=== PATIENT | female | born 1945 | race Caucasian/White ===

== ENCOUNTER 2021-07-03 20:01 | Inpatient (IN) | payer MEDICARE ==
[~2021-07-03] VITALS: Ht 157.5 cm; Wt 47.3 kg
[2021-07-03] MEDS ORDERED: MORPHINE SULFATE 2 MG/ML INJ. IVP ONE ×2 (21:00→22:15)
--- NOTE | 2021-07-03 21:02 | PHYS DOC ---
Past Medical History Past Medical History: Cancer, Diabetes-Type II, Vascular Disease Additional Past Medical Histor: patient poor historian, breast cancer, on plavix, recurrent shingles Past Surgical History: Other Additional Past Surgical Histo: bilateral masectomy, multiple bypasses/stents in b/l LE Drug Use: None General Adult EDM: Chief Complaint: HIP PAIN HPI: HPI: Patient is a 76 year old female who presents via EMS with left hip pain status post mechanical fall at home. Patient states that she was on the couch watching television, and when she stood up she fell to the ground. She reports that her "foot was asleep," but she did not realize it until she stood up. Patient denie s any feelings of lightheadedness or vertigo prior to fall. Patient is a somewhat poor historian, and can only provide past medical history that includes breast cancer with bilateral mastectomy. Patient was given 100 fentanyl en route, which did improve her pain. Review of Systems: Review of Systems: Constitutional: Denies fever, chills or generalized weakness Eyes: Denies change in visual acuity, visual field deficits or discharge HENT: Denies ear pain, nasal congestion or sore throat Respiratory: Denies cough or shortness of breath Cardiovascular: Denies chest pain, palpitations or edema GI: Denies abdominal pain, nausea, vomiting, bloody stools or diarrhea : Denies dysuria or hematuria Musculoskeletal: See HPI Integument: Denies rash or other skin lesion Neurologic: Denies headache, focal weakness or sensory changes Heart Score: C/O Chest Pain: No Current Medications: Current Medications Medications (Trade) Dose Ordered Sig/Patti Route PRN Reason Start Time Stop Time Status Last Admin Dose Admin Morphine Sulfate (Morphine Sulfate) 2 mg 1X ONCE IVP 07/03/21 21:00 07/03/21 21:01 DC 07/03/21 20:43 Morphine Sulfate (Morphine Sulfate) 2 mg 1X ONCE IVP 07/03/21 22:15 07/03/21 22:16 DC 07/03/21 22:24 Hydromorphone HCl (Dilaudid) 1 mg 1X ONCE IVP 07/03/21 22:30 07/03/21 22:31 DC 07/03/21 22:49 Allergies: Allergies: Allergies Coded Allergies Type Severity Reaction Last Updated Verified No Known Drug Allergies 4/2/22 No Physical Exam: PE: Constitutional: Well developed, well nourished, non-toxic appearance, patient grimaces in pain with slight movement or jarring of exam bed. HENT: Normocephalic, atraumatic, bilateral external ears normal, nose normal. Eyes: PERRL, EOMI, conjunctiva normal, no discharge. Neck: Normal range of motion, no tenderness, no stridor. Skin: Small abrasion noted to base of left great toenail with dried blood, skin behind the left knee bruised. Skin otherwise warm, dry, no erythema, no rash. Back: No obvious deformity, no tenderness. Extremities: Left lower extremity exquisitely tender to movement, range of motion not intact secondary to pain, distal left lower extremity externally rotated, left lower extremity shorter than right, DP/PT pulses present on initial examthough weaker compared to right, 1+ pitting edema to left lower extremity. Extremities otherwise no tenderness, no cyanosis, no clubbing, ROM intact, no edema. Neurologic: Alert and oriented x4, sensory function grossly intact, no focal deficits noted. Current Patient Data: Vital Signs: Vital Signs Date Time Temp Pulse Resp B/P (MAP) Pulse Ox O2 Delivery O2 Flow Rate FiO2 07/04/21 00:50 88 16 167/68 (101) 97 Room Air 2.0 07/04/21 00:45 99 16 158/59 (92) 97 Nasal Cannula 2.0 07/04/21 00:40 101 16 189/84 (119) 98 Nasal Cannula 2.0 07/04/21 00:35 100 16 187/84 (118) 98 Nasal Cannula 2.0 07/03/21 22:49 16 97 07/03/21 22:24 16 98 Room Air 07/03/21 20:43 18 97 07/03/21 20:22 97.4 87 16 170/86 (114) 95 Room Air 97.4 Radiology/Procedures: Radiology/Procedures: EXAMINATION: Chest, pelvis and left femur radiographs. VIEWS: Single view of the chest, single view of the pelvis and 3 views of the left femur. COMPARISON: None INDICATION:76 years, Female, falling down. FINDINGS: Chest: Normal cardiomediastinal silhouette. No focal consolidation. No pleural effusion or pneumothorax. No acute osseous process. Right Mediport catheter tip locates in the mid SVC. Pelvis and proximal femur: Acute comminuted displaced and impacted distal left femoral diaphyseal fracture with extension to the articular surface. Large soft tissue swelling about the fracture. No dislocation or subluxation. Tr icompartment osteoarthritis of the knee. [id number] bilateral hip osteoarthritis. IMPRESSION: 1. No acute cardiopulmonary findings. 2. Acute comminuted impacted distal left femoral diaphyseal fracture. Electronically signed by: David Valle MD (07/03/2021 9:51 PM) [facility] PROCEDURE: XR LT TIBIA + FIBULA, XR KNEE_LT 1-2 VIEWS DATE: 07/03/2021 10:37 PM INDICATION: additional views COMPARISON: Radiograph done earlier today. FINDINGS/ IMPRESSION: Additional views of the patient's comminuted and displaced right distal femoral diaphysis fracture. Severe degenerative changes of the lateral compartment of the knee. Moderate medial and patellofemoral compartment degenerative changes. No acute tibia/fibular fracture. Electronically signed by: Bubba Mcintosh MD (07/03/2021 11:02 PM) [facility] Course & Med Decision Making: Course & Med Decision Making Pertinent Labs and Imaging studies reviewed. (See chart for details) Patient is a 76-year-old female who sustained a mechanical fall at home and presents with left hip pain. Patient does have left lower extremity external rotation deformity as well as shortening. Plain films obtained of the left hip, pelvis and femur. Plain films reveal a comminuted fracture at the distal femur of the left leg. Additional views obtained of the left knee and left tibia-fibula. After additional images were obtained, palpable pulses were weaker. Doppler was used to evaluate DP/PT pulses. While thready, triphasic pulses were heard using Doppler by myself and Dr. Kennedy, attending in the department.. Dr. Ash, orthopedic surgery service, was paged and made aware of patient case. She recommends applying traction, reducing the leg, and then obtaining CT images. Plain film of the chest was also obtained for preoperative purposes. Ketamine was used for conscious sedation procedure, administered and supervised by Dr. Kennedy. Patient's power of assistant city attorney, Мария Landis, provided verbal consent for the sedation procedure as well as reduction procedure, as the patient was medicated with narcotics and unable to provide verbal or signature consent. The consent by Мария Landis was witnessed by myself as well as nursing concrete pipe plant supervisor, Timothy. After ketamine administration and ensuring the patient was dissociated, manual traction was applied to the left lower extremity. This was followed by knee immobilizer placement. Gongora's traction device was then applied over the immobilizer. Neurovascular intact post reduction. Patient was taken to CT after reawakening from ketamine sedation. In order to obtain CT images, Gongora's traction was removed for short period of time and then reapplied. The knee immobilizer remained in place throughout. Patient was admitted to hospitalist service under Dr. Brown. Keith Disclaimer: Keith Disclaimer: This electronic medical record was generated, in whole or in part, using a voice recognition dictation system. Procedural Sedation Proc Sed Indication: Comminuted, impacted distal left femur fracture Consent: I have discussed with the patient and the patient field representative/health education the indication, alternatives, and the possible risks and /or complications of the planned procedure and the anesthesia methods. The patient is unable at this time to agree and proceed, but patient field representative/health education verbalizes understanding and agreement to proceed. Pre-Sedation Documentation and Exam: Airway Assessment: normal. Prior History of Anesthesia Complications: Patient had acute agitation after generalized anesthesia during bypass in lower extremities previously. Sedation/ Anesthesia Plan: Medications Used: see nursing notes; 0.5 mg/kg ketamine push over 1 minute. Monitoring and Safety: The patient was placed on a playground monitor and vital signs, pulse oximetry and level of consciousness were continuously evaluated throughout the procedure. The patient was closely monitored until recovery from the medications was complete and the patient had returned to baseline status. Respiratory therapy was on standby at all times during the procedure. (The following sections must be completed) Post-Sedation Vital Signs: See vital signs Post-Sedation Exam: Neurovascularly intact. Complications: none. Vital Signs Vital Signs Date Time Temp Pulse Resp B/P (MAP) Pulse Ox O2 Delivery O2 Flow Rate FiO2 07/04/21 00:50 88 16 167/68 (101) 97 Room Air 2.0 07/03/21 20:22 97.4 97.4 Departure Departure Impression: Primary Impression: Closed fracture of distal end of left femur Qualified Codes: S72.492A - Other fracture of lower end of left femur, initial encounter for closed fracture Disposition: ADMITTED INPATIENT Admitting Physician: REBEKAH (Kevin) Condition: GUARDED Referrals: MARIS PRICE MD (PCP) WALTER MARSHALL Jul 03, 2021 21:02
--- NOTE | 2021-07-03 21:53 | RAD ---
EXAMINATION: Chest, pelvis and left femur radiographs. VIEWS: Single view of the chest, single view of the pelvis and 3 views of the left femur. COMPARISON: None INDICATION:76 years, Female, falling down. FINDINGS: Chest: Normal cardiomediastinal silhouette. No focal consolidation. No pleural effusion or pneumothor ax. No acute osseous process. Right Mediport catheter tip locates in the mid SVC. Pelvis and proximal femur: Acute comminuted displaced and impacted distal left femoral diaphyseal fra cture with extension to the articular surface. Large soft tissue swelling about the fracture. No disl ocation or subluxation. Tricompartment osteoarthritis of the knee. [id number] bilateral hip ost eoarthritis. IMPRESSION: 1. No acute cardiopulmonary findings. 2. Acute comminuted impacted distal left femoral diaphyseal fracture. Electronically signed by: David Valle MD (07/03/2021 9:51 PM) [facility]
[2021-07-03] MEDS ORDERED: HYDROmorphone 2 MG/ML INJ. IVP ONE ×2 (22:30→23:30)
--- NOTE | 2021-07-03 23:05 | RAD ---
XR LT TIBIA + FIBULA, XR KNEE_LT 1-2 VIEWS DATE: 07/03/2021 10:37 PM INDICATION: additional views COMPARISON: Radiograph done earlier today. FINDINGS/ IMPRESSION: Additional views of the patient's comminuted and displaced right distal femoral diaphysis fracture. Severe degenerative changes of the lateral compartment of the knee. Moderate medial and patellofemora l compartment degenerative changes. No acute tibia/fibular fracture. Electronically signed by: Bubba Mcintosh MD (07/03/2021 11:02 PM) [facility]
[2021-07-03] MEDS ORDERED: KETAMINE HCL IN NACL, ISO-OSM 50 MG/5 ML SYRINGE IV ONE (23:15)
[2021-07-04] VITALS (13 sets, daily range): BP systolic 113–135; BP diastolic 52–64
--- NOTE | 2021-07-04 06:56 | RAD ---
EXAMINATION: CT LOWER LEFT EXTREMITY WITHOUT CONTRAST, 07/04/2021 1:00 AM CLINICAL INDICATION: Post reduction, preop COMPARISON: Left knee radiograph 07/03/2021 TECHNIQUE: Helical CT imaging performed of the left lower extremity from above the hips through the m idfoot without the use of intravenous contrast. Sagittal and coronal reformats were obtained. One or more of the following individualized dose reduction techniques were utilized for this examinat ion: 1. Automated exposure control 2. Adjustment of the mA and/or kV according to patient size 3. Use of iterative reconstruction technique. FINDINGS: The bones are diffusely demineralized. There is a displaced fracture of the distal femoral metadiaphysis. The distal fragment is displaced medially by about 1.5 cm and slightly angulated media lly. No enterocele or extension. There is no other fracture in the left lower extremity. There is a l arge lipohemarthrosis. There is severe lateral compartment narrowing with subchondral sclerosis and small subchondral cysts. Moderate medial compartment narrowing. There are tricompartmental osteophytes. There is no significa nt arthritis in the hip or ankle. There are surgical clips in the right groin. IMPRESSION: Mildly displaced distal femoral metadiaphyseal fracture. Electronically signed by: Joanna Thomas MD (07/04/2021 6:53 AM) JUN
[2021-07-04] MEDS ORDERED: ONDANSETRON PF 4 MG/2 ML VIAL. IVP PRN ×2 (07:15→09:15)
[2021-07-04] MEDS ORDERED: ACETAMINOPHEN 325 MG TABLET. PO PRN (07:15)
--- NOTE | 2021-07-04 08:07 | PDOC ---
PROGRESS NOTES Date of Service DATE: 07/04/21 TIME: 08:01 Subjective Subjective Problems overnight: Objective Vital Signs Vital Signs Date Time Temp Pulse Resp B/P (MAP) Pulse Ox O2 Delivery O2 Flow Rate FiO2 07/04/21 07:00 98.9 81 18 123/53 (76) 92 Room Air 98.9 07/04/21 00:50 2.0 Assessment Assessment POD# Plan Plan of Care Patient has not been physically seen by orthopedics but Dr. Ash was talking to the ER PA last night about patient. We are planning to take the patient to the OR today, time TBD. Full consult to follow. Justicifation of Admission Dx: Justifications for Admission: Justification of Admission Dx: Yes SYLVIA VICENTE Jul 04, 2021 08:06
[2021-07-04] MEDS: fentaNYL PF VIAL 100 MCG/2 ML VIAL IVP PRN (08:10)
[2021-07-04 08:30] LABS: BASO % 0 % (0-3); EOS % 0 % (0-3); HEMATOCRIT 30.1 % (36.0-47.0); HEMOGLOBIN 10.2 g/dL (12.0-15.5); LYMPH # 1.1 x10^3/uL (1.0-4.8); LYMPH % 16 % (24-48); MEAN CORPUSCULAR HEMOGLOBIN 31 pg (25-35); MEAN CORPUSCULAR HGB CONC 34 g/dL (31-37); MEAN CORPUSCULAR VOLUME 91 fL (79-100); MONO # 0.8 x10^3/uL (0.0-1.1); MONO % 12 % (0-9); NEUT # 4.9 x10^3/uL (1.8-7.7); NEUT % 72 % (31-73); PLATELET COUNT 296 x10^3/uL (140-400); RED BLOOD COUNT 3.29 x10^6/uL (3.50-5.40); RED CELL DISTRIBUTION WIDTH 13.9 % (11.5-14.5); WHITE BLOOD COUNT 6.9 x10^3/uL (4.0-11.0)
[2021-07-04 08:43] LABS: PROTHROMBIN TIME PATIENT 12.8 SEC (11.7-14.0)
[2021-07-04 08:52] LABS: ALBUMIN 3.1 g/dL (3.4-5.0); ALBUMIN/GLOBULIN RATIO 0.9 (1.0-1.7); CALCIUM 8.3 mg/dL (8.5-10.1); CREATININE 1.1 mg/dL (0.6-1.0); POTASSIUM 4.4 mmol/L (3.5-5.1); TOTAL BILIRUBIN 0.7 mg/dL (0.2-1.0); TOTAL PROTEIN 6.4 g/dL (6.4-8.2)
[2021-07-04] MEDS ORDERED: ELECTROLYTE (NON-ICU) PROTOCOL. MC PRN (09:15)
[2021-07-04] MEDS ORDERED: DEXTROSE 50% 25 GM / 50ML DISP.SYRIN. IV PRN (09:15)
[2021-07-04] MEDS ORDERED: IV DEXTROSE 5% 250 ML BAG. IV PRN (09:15)
[2021-07-04] MEDS ORDERED: CALCIUM CARBONATE 500 MG TAB.CHEW PO PRN (09:15)
[2021-07-04] MEDS ORDERED: MORPHINE SULFATE 2 MG/ML INJ. IV PRN (09:15)
[2021-07-04] MEDS ORDERED: PROCHLORPERAZINE 10 MG/2 ML VIAL. IVP PRN (09:30)
[2021-07-04] MEDS ORDERED: IV RINGERS,LACTATED 1000ML 1,000 ML IV SCH (09:30)
[2021-07-04] MEDS ORDERED: fentaNYL PF VIAL 100 MCG/2 ML VIAL IVP PRN ×2 (09:30)
[2021-07-04] MEDS ORDERED: [UNRECOGNIZED DRUG - CODE] PO (10:55)
[2021-07-04] MEDS ORDERED: OXYB5TAB10 PO (11:04)
[2021-07-04] MEDS ORDERED: ATOR20TA58 PO (11:04)
[2021-07-04] MEDS ORDERED: CLOP75TA PO (11:04)
[2021-07-04] MEDS ORDERED: METF10007 PO (11:04)
[2021-07-04] MEDS ORDERED: GABA600T7 PO (11:04)
[2021-07-04] MEDS: INSULIN LISPRO 300 UNITS/3 ML VIAL. SQ SCH ×2 (11:51→17:00)
[2021-07-04] MEDS ORDERED: ONDANSETRON PF 4 MG/2 ML VIAL. ONE ×2 (15:17→17:23)
[2021-07-04] MEDS ORDERED: DEXAMETHASONE SOD PHOS 4 MG/ML VIAL ONE (15:17)
[2021-07-04] MEDS ORDERED: PROPOFOL 10 MG/ML (20ML) VIAL. IV ONE (15:17)
[2021-07-04] MEDS ORDERED: fentaNYL PF VIAL 100 MCG/2 ML VIAL ONE (15:17)
--- NOTE | 2021-07-04 15:41 | PDOC2 ---
CONSULT Date of Consult Date of Consult DATE: 07/04/21 TIME: 15:29 Reason for Consult Reason for Consult: L femur fracture History of Present Illness Reason for Visit: History is taken from patient's brother and sister in law. Brother says that he calls her every evening around 6 pm to check on her but EMS called him earlier than that. The patient told them that her leg had been asleep and she didn't realize it and she collapsed when she stood up to get the phone that wasn't with her. After she fell, she remembered that she had some sort of emergency device that called EMS. EMS called the emergency contact who told them to take her to [place] where she was found to have a distal femur fracture. She was transferred to [place] for orthopedic care. Past Medical History Past Medical History Family reports DM, HTN, high cholesterol, endometrial CA, breast CA, peripheral vascular disease, memory issues-getting worse, multiple falls recently Past Surgical History Past Surgical History Vascular bypass BL LE x 2, hysterectomy, bilateral mastectomy, L knee surgery Family History Family History [place] Social History Social History Patient quit smoking about 6-7 years ago, vapes now. No alcohol use. Lives alone in community. Current Problem List Problem List Problems Medical Problems: (1) Closed fracture of distal end of left femur Status: Acute Current Medications Current Medications Home medications per family: amlodipine, benazepril, metformin, oxybutinin, Plavix, gabapentin prn, lipitor Current Medications Morphine Sulfate (Morphine Sulfate) 2 mg 1X ONCE IVP Last administered on 07/03/21at 20:43; Start 07/03/21 at 21:00; Stop 07/03/21 at 21:01; Status DC Morphine Sulfate (Morphine Sulfate) 2 mg 1X ONCE IVP Last administered on 07/03/21at 22:24; Start 07/03/21 at 22:15; Stop 07/03/21 at 22:16; Status DC Hydromorphone HCl (Dilaudid) 1 mg 1X ONCE IVP Last administered on 07/03/21at 22:49; Start 07/03/21 at 22:30; Stop 07/03/21 at 22:31; Status DC Ketamine HCl (Ketamine) 100 mg 1X ONCE IV Last administered on 07/04/21at 00:45; Start 07/03/21 at 23:15; Stop 07/03/21 at 23:16; Status DC Hydromorphone HCl (Dilaudid) 1 mg PRN Q2HR ONCE IVP ; Start 07/03/21 at 23:30; Stop 07/03/21 at 23:31; Status DC Acetaminophen (Tylenol) 650 mg PRN Q6HRS PRN PO MILD PAIN / TEMP > 100.3'F; Start 07/04/21 at 07:15 Fentanyl Citrate (Fentanyl 2ml Vial) 25 mcg PRN Q3HRS PRN IVP SEVERE PAIN 7-10 Last administered on 07/04/21at 08:10; Start 07/04/21 at 07:15 Ondansetron HCl (Zofran) 4 mg PRN Q4HRS PRN IVP NAUSEA/VOMITING; Start 07/04/21 at 07:15 Ondansetron HCl (Zofran) 4 mg PRN Q6HRS PRN IVP NAUSEA/VOMITING; Start 07/04/21 at 09:15 Calcium Carbonate/ Glycine (Tums) 500 mg PRN Q3HRS PRN PO UPSET STOMACH; Start 07/04/21 at 09:15 Info (Non-Icu Electrolyte Protocol) 1 ea PRN DAILY PRN MC SEE COMMENTS; Start 07/04/21 at 09:15 Morphine Sulfate (Morphine Sulfate) 1 mg PRN Q1HR PRN IV MODERATE PAIN; Start 07/04/21 at 09:15 Morphine Sulfate (Morphine Sulfate) 2 mg PRN Q1HR PRN IV SEVERE PAIN; Start 07/04/21 at 09:15 Senna/Docusate Sodium (Senna Plus) 1 tab BID PO ; Start 07/04/21 at 21:00 Insulin Human Lispro (HumaLOG) 0-7 UNITS TIDWMEALS SQ ; Start 07/04/21 at 12:00 Dextrose (Dextrose 50%-Water Syringe) 12.5 gm PRN Q15MIN PRN IV SEE COMMENTS; Start 07/04/21 at 09:15 Dextrose (Iv Dextrose 5%) 250 ml PRN Q15MIN PRN IV SEE COMMENTS; Start 07/04/21 at 09:15 Fentanyl Citrate (Fentanyl 2ml Vial) 25 mcg PRN Q5MIN PRN IVP MILD PAIN 1-3; Start 07/04/21 at 09:30; Stop 07/05/21 at 09:29 Fentanyl Citrate (Fentanyl 2ml Vial) 50 mcg PRN Q5MIN PRN IVP MODERATE PAIN 4- 6; Start 07/04/21 at 09:30; Stop 07/05/21 at 09:29 Morphine Sulfate (Morphine Sulfate) 1 mg PRN Q10MIN PRN IVP SEVERE PAIN 7-10; Start 07/04/21 at 09:30; Stop 07/05/21 at 09:29 Ringer's Solution 1,000 ml @ 30 mls/hr Q24H IV ; Start 07/04/21 at 09:30; Stop 07/04/21 at 21:29 Hydromorphone HCl (Dilaudid) 0.5 mg PRN Q10MIN PRN IVP SEVERE PAIN 7-10, 2nd CHOICE; Start 07/04/21 at 09:30; Stop 07/05/21 at 09:29 Prochlorperazine Edisylate (Compazine) 5 mg PACU PRN PRN IVP NAUSEA, MRX1; Start 07/04/21 at 09:30; Stop 07/05/21 at 09:29 Propofol (Diprivan) 200 mg STK-MED ONCE IV ; Start 07/04/21 at 15:17; Stop 07/04/21 at 15:17; Status DC Dexamethasone Sodium Phosphate (Decadron) 4 mg STK-MED ONCE .ROUTE ; Start 07/04/21 at 15:17; Stop 07/04/21 at 15:17; Status DC Ondansetron HCl (Zofran) 4 mg STK-MED ONCE .ROUTE ; Start 07/04/21 at 15:17; Stop 07/04/21 at 15:17; Status DC Fentanyl Citrate (Fentanyl 2ml Vial) 100 mcg STK-MED ONCE .ROUTE ; Start 07/04/21 at 15:17; Stop 07/04/21 at 15:17; Status DC Active Scripts Active Reported Metformin Hcl 1,000 Mg Tablet 1,000 Mg PO [id number] Oxybutynin Chloride 5 Mg Tablet 5 Mg PO BID Clopidogrel (Clopidogrel Bisulfate) 75 Mg Tablet 75 Mg PO DAILY Atorvastatin Calcium 20 Mg Tablet 20 Mg PO DAILY Gabapentin 600 Mg Tablet 300 Mg PO BID Amlodipine-Benazepril 5-40 Mg (Amlodipine Besylate/Benazepril) 1 Each Capsule 1 Each PO DAILY Allergies Allergies: Coded Allergies: No Known Drug Allergies (Unverified , 07/03/21) ROS Review of System Unable to obtain due to pt's cognition Physical Exam Physical Exam Patient is a 76 year old female who appears well developed, well nourished, in no acute distress. She is not oriented but answers questions. She is not aware that she has a femur fracture. The L LE is in knee immobilizer and traction. Not removed for exam. Calf soft, NVI in the foot. Vitals VITALS Vital Signs Date Time Temp Pulse Resp B/P (MAP) Pulse Ox O2 Delivery O2 Flow Rate FiO2 07/04/21 11:00 100.4 78 18 127/53 (77) 96 Room Air 100.4 07/04/21 08:16 2.0 Labs Labs Laboratory Tests Test 07/04/21 07:55 07/04/21 09:30 07/04/21 11:49 White Blood Count 6.9 x10^3/uL (4.0-11.0) Red Blood Count 3.29 x10^6/uL (3.50-5.40) Hemoglobin 10.2 g/dL (12.0-15.5) Hematocrit 30.1 % (36.0-47.0) Mean Corpuscular Volume 91 fL (79-100) Mean Corpuscular Hemoglobin 31 pg (25-35) Mean Corpuscular Hemoglobin Concent 34 g/dL (31-37) Red Cell Distribution Width 13.9 % (11.5-14.5) Platelet Count 296 x10^3/uL (140-400) Neutrophils (%) (Auto) 72 % (31-73) Lymphocytes (%) (Auto) 16 % (24-48) Monocytes (%) (Auto) 12 % (0-9) Eosinophils (%) (Auto) 0 % (0-3) Basophils (%) (Auto) 0 % (0-3) Neutrophils # (Auto) 4.9 x10^3/uL (1.8-7.7) Lymphocytes # (Auto) 1.1 x10^3/uL (1.0-4.8) Monocytes # (Auto) 0.8 x10^3/uL (0.0-1.1) Eosinophils # (Auto) 0.0 x10^3/uL (0.0-0.7) Basophils # (Auto) 0.0 x10^3/uL (0.0-0.2) Prothrombin Time 12.8 SEC (11.7-14.0) Prothromb Time International Ratio 1.0 (0.8-1.1) Sodium Level 140 mmol/L (136-145) Potassium Level 4.4 mmol/L (3.5-5.1) Chloride Level 106 mmol/L (98-107) Carbon Dioxide Level 26 mmol/L (21-32) Anion Gap 8 (6-14) Blood Urea Nitrogen 23 mg/dL (7-20) Creatinine 1.1 mg/dL (0.6-1.0) Estimated GFR (Cockcroft-Gault) 48.0 BUN/Creatinine Ratio 21 (6-20) Glucose Level 164 mg/dL (70-99) Calcium Level 8.3 mg/dL (8.5-10.1) Total Bilirubin 0.7 mg/dL (0.2-1.0) Aspartate Amino Transf (AST/SGOT) 22 U/L (15-37) Alanine Aminotransferase (ALT/SGPT) 23 U/L (14-59) Alkaline Phosphatase 116 U/L (46-116) Total Protein 6.4 g/dL (6.4-8.2) Albumin 3.1 g/dL (3.4-5.0) Albumin/Globulin Ratio 0.9 (1.0-1.7) SARS-CoV-2 Antigen (Rapid) Negative (NEGATIVE) Glucose (Fingerstick) 167 mg/dL (70-99) Laboratory Tests Test 07/04/21 07:55 07/04/21 09:30 07/04/21 11:49 White Blood Count 6.9 x10^3/uL (4.0-11.0) Red Blood Count 3.29 x10^6/uL (3.50-5.40) Hemoglobin 10.2 g/dL (12.0-15.5) Hematocrit 30.1 % (36.0-47.0) Mean Corpuscular Volume 91 fL (79-100) Mean Corpuscular Hemoglobin 31 pg (25-35) Mean Corpuscular Hemoglobin Concent 34 g/dL (31-37) Red Cell Distribution Width 13.9 % (11.5-14.5) Platelet Count 296 x10^3/uL (140-400) Neutrophils (%) (Auto) 72 % (31-73) Lymphocytes (%) (Auto) 16 % (24-48) Monocytes (%) (Auto) 12 % (0-9) Eosinophils (%) (Auto) 0 % (0-3) Basophils (%) (Auto) 0 % (0-3) Neutrophils # (Auto) 4.9 x10^3/uL (1.8-7.7) Lymphocytes # (Auto) 1.1 x10^3/uL (1.0-4.8) Monocytes # (Auto) 0.8 x10^3/uL (0.0-1.1) Eosinophils # (Auto) 0.0 x10^3/uL (0.0-0.7) Basophils # (Auto) 0.0 x10^3/uL (0.0-0.2) Prothrombin Time 12.8 SEC (11.7-14.0) Prothromb Time International Ratio 1.0 (0.8-1.1) Sodium Level 140 mmol/L (136-145) Potassium Level 4.4 mmol/L (3.5-5.1) Chloride Level 106 mmol/L (98-107) Carbon Dioxide Level 26 mmol/L (21-32) Anion Gap 8 (6-14) Blood Urea Nitrogen 23 mg/dL (7-20) Creatinine 1.1 mg/dL (0.6-1.0) Estimated GFR (Cockcroft-Gault) 48.0 BUN/Creatinine Ratio 21 (6-20) Glucose Level 164 mg/dL (70-99) Calcium Level 8.3 mg/dL (8.5-10.1) Total Bilirubin 0.7 mg/dL (0.2-1.0) Aspartate Amino Transf (AST/SGOT) 22 U/L (15-37) Alanine Aminotransferase (ALT/SGPT) 23 U/L (14-59) Alkaline Phosphatase 116 U/L (46-116) Total Protein 6.4 g/dL (6.4-8.2) Albumin 3.1 g/dL (3.4-5.0) Albumin/Globulin Ratio 0.9 (1.0-1.7) SARS-CoV-2 Antigen (Rapid) Negative (NEGATIVE) Glucose (Fingerstick) 167 mg/dL (70-99) Images Images Reviewed from Vitaliy-distal 1/3 femur shaft fracture Assessment/Plan Assessment/Plan L femur distal 1/3 shaft fracture osteoporosis hx of endometial and breast CA HTN DM Vape/nicotine abuse dyslipidmia peripheral vascular disease Plan to go to the OR now for IM nail of the L femur. Discussed the risks, benefits, alternatives and rehab times with her brother and sister in law, DPOA. All questions answered. Will continue to follow. Tobacco/nicotine cessation encouraged. F/u with PCP on osteoporosis. All films available were reviewed. SYLVIA VICENTE Jul 04, 2021 15:41
[2021-07-04] MEDS ORDERED: ceFAZolin SODIUM IV Push 1 GM VIAL. IVP ONE (16:33)
[2021-07-04] MEDS ORDERED: ROCURONIUM 50 MG/5 ML VIAL. ONE (16:48)
[2021-07-04] MEDS ORDERED: GLYCOPYRROLATE 1 MG/5 ML VIAL. ONE (17:21)
[2021-07-04] MEDS ORDERED: NEOSTIGMINE METHYLSULFATE 5 MG/5 ML SYRINGE. ONE (17:22)
--- NOTE | 2021-07-04 17:46 | PDOC1 ---
History and Physical Date of Service: DOS: DATE: 07/04/21 TIME: 17:43 Chief Complaint: Chief Complain: hip pain History of Present Illness: HPI: Patient is a 76 year old female who presents via EMS with left hip pain status post mechanical fall at home. Patient states that she was on the couch watching television, and when she stood up she fell to the ground. She reports that her "foot was asleep," but she did not realize it until she stood up. Patient denies any feelings of lightheadedness or vertigo prior to fall. Patient is a somewhat poor historian, and can only provide past medical history that includes breast cancer with bilateral mastectomy. Patient was given 100 fentanyl en route, which did improve her pain. Past Medical/Surgical History: PMH/PSH: Past Medical History: Cancer, Diabetes-Type II, Vascular Disease Additional Past Medical Histor: patient poor historian, breast cancer, on plavix, recurrent shingles Additional Past Surgical Histo: bilateral masectomy, multiple bypasses/stents in b/l LE Drug Use: None daily smoker; denies alcohol use Allergies: Allergies: Coded Allergies: No Known Drug Allergies (Unverified , 07/03/21) Family History: Family History: Hypertension Current Medications: Current Medications Current Medications Morphine Sulfate (Morphine Sulfate) 2 mg 1X ONCE IVP Last administered on 07/03/21at 20:43; Start 07/03/21 at 21:00; Stop 07/03/21 at 21:01; Status DC Morphine Sulfate (Morphine Sulfate) 2 mg 1X ONCE IVP Last administered on 07/03/21at 22:24; Start 07/03/21 at 22:15; Stop 07/03/21 at 22:16; Status DC Hydromorphone HCl (Dilaudid) 1 mg 1X ONCE IVP Last administered on 07/03/21at 22:49; Start 07/03/21 at 22:30; Stop 07/03/21 at 22:31; Status DC Ketamine HCl (Ketamine) 100 mg 1X ONCE IV Last administered on 07/04/21at 00:45; Start 07/03/21 at 23:15; Stop 07/03/21 at 23:16; Status DC Hydromorphone HCl (Dilaudid) 1 mg PRN Q2HR ONCE IVP ; Start 07/03/21 at 23:30; Stop 07/03/21 at 23:31; Status DC Acetaminophen (Tylenol) 650 mg PRN Q6HRS PRN PO MILD PAIN / TEMP > 100.3'F; Start 07/04/21 at 07:15 Fentanyl Citrate (Fentanyl 2ml Vial) 25 mcg PRN Q3HRS PRN IVP SEVERE PAIN 7-10 Last administered on 07/04/21at 08:10; Start 07/04/21 at 07:15 Ondansetron HCl (Zofran) 4 mg PRN Q4HRS PRN IVP NAUSEA/VOMITING; Start 07/04/21 at 07:15 Ondansetron HCl (Zofran) 4 mg PRN Q6HRS PRN IVP NAUSEA/VOMITING; Start 07/04/21 at 09:15 Calcium Carbonate/ Glycine (Tums) 500 mg PRN Q3HRS PRN PO UPSET STOMACH; Start 07/04/21 at 09:15 Info (Non-Icu Electrolyte Protocol) 1 ea PRN DAILY PRN MC SEE COMMENTS; Start 07/04/21 at 09:15 Morphine Sulfate (Morphine Sulfate) 1 mg PRN Q1HR PRN IV MODERATE PAIN; Start 07/04/21 at 09:15 Morphine Sulfate (Morphine Sulfate) 2 mg PRN Q1HR PRN IV SEVERE PAIN; Start 07/04/21 at 09:15 Senna/Docusate Sodium (Senna Plus) 1 tab BID PO ; Start 07/04/21 at 21:00 Insulin Human Lispro (HumaLOG) 0-7 UNITS TIDWMEALS SQ ; Start 07/04/21 at 12:00 Dextrose (Dextrose 50%-Water Syringe) 12.5 gm PRN Q15MIN PRN IV SEE COMMENTS; Start 07/04/21 at 09:15 Dextrose (Iv Dextrose 5%) 250 ml PRN Q15MIN PRN IV SEE COMMENTS; Start 07/04/21 at 09:15 Fentanyl Citrate (Fentanyl 2ml Vial) 25 mcg PRN Q5MIN PRN IVP MILD PAIN 1-3; Start 07/04/21 at 09:30; Stop 07/05/21 at 09:29 Fentanyl Citrate (Fentanyl 2ml Vial) 50 mcg PRN Q5MIN PRN IVP MODERATE PAIN 4- 6; Start 07/04/21 at 09:30; Stop 07/05/21 at 09:29 Morphine Sulfate (Morphine Sulfate) 1 mg PRN Q10MIN PRN IVP SEVERE PAIN 7-10; Start 07/04/21 at 09:30; Stop 07/05/21 at 09:29 Ringer's Solution 1,000 ml @ 30 mls/hr Q24H IV ; Start 07/04/21 at 09:30; Stop 07/04/21 at 21:29 Hydromorphone HCl (Dilaudid) 0.5 mg PRN Q10MIN PRN IVP SEVERE PAIN 7-10, 2nd CHOICE; Start 07/04/21 at 09:30; Stop 07/05/21 at 09:29 Prochlorperazine Edisylate (Compazine) 5 mg PACU PRN PRN IVP NAUSEA, MRX1; Start 07/04/21 at 09:30; Stop 07/05/21 at 09:29 Propofol (Diprivan) 200 mg STK-MED ONCE IV ; Start 07/04/21 at 15:17; Stop 07/04/21 at 15:17; Status DC Dexamethasone Sodium Phosphate (Decadron) 4 mg STK-MED ONCE .ROUTE ; Start 07/04/21 at 15:17; Stop 07/04/21 at 15:17; Status DC Ondansetron HCl (Zofran) 4 mg STK-MED ONCE .ROUTE ; Start 07/04/21 at 15:17; St op 07/04/21 at 15:17; Status DC Fentanyl Citrate (Fentanyl 2ml Vial) 100 mcg STK-MED ONCE .ROUTE ; Start 07/04/21 at 15:17; Stop 07/04/21 at 15:17; Status DC Cefazolin Sodium (Ancef) 1 gm STK-MED ONCE IVP ; Start 07/04/21 at 16:33; Stop 07/04/21 at 16:34; Status DC Rocuronium [place] (Zemuron) 50 mg STK-MED ONCE .ROUTE ; Start 07/04/21 at 16:48; Stop 07/04/21 at 16:49; Status DC Glycopyrrolate (Robinul) 1 mg STK-MED ONCE .ROUTE ; Start 07/04/21 at 17:21; Stop 07/04/21 at 17:22; Status DC Neostigmine [place] (Neostigmine Methylsulfate) 5 mg STK-MED ONCE .ROUTE ; Start 07/04/21 at 17:22; Stop 07/04/21 at 17:22; Status DC Ondansetron HCl (Zofran) 4 mg STK-MED ONCE .ROUTE ; Start 07/04/21 at 17:23; Stop 07/04/21 at 17:23; Status DC Active Scripts Active Reported Metformin Hcl 1,000 Mg Tablet 1,000 Mg PO [id number] Oxybutynin Chloride 5 Mg Tablet 5 Mg PO BID Clopidogrel (Clopidogrel Bisulfate) 75 Mg Tablet 75 Mg PO DAILY Atorvastatin Calcium 20 Mg Tablet 20 Mg PO DAILY Gabapentin 600 Mg Tablet 300 Mg PO BID Amlodipine-Benazepril 5-40 Mg (Amlodipine Besylate/Benazepril) 1 Each Capsule 1 Each PO DAILY ROS: Review of Systems Review of System Unless noted in HPI 14 point review of systems is negative Physical Exam: Vital Signs: Vital Signs Date Time Temp Pulse Resp B/P (MAP) Pulse Ox O2 Delivery O2 Flow Rate FiO2 07/04/21 15:00 99.2 79 18 125/56 (79) 95 Room Air 99.2 07/04/21 08:16 2.0 Physcial Exam: GEN: Mild distress due to pain HEENT: Normal cephalic, atraumatic, external auditory canals are patent EYES: Extraocular muscles are intact, pupil are equally round and reactive to light and accommodation MUSCULOSKELETAL: Limited range of motion ENDOCRINE: No thyromegaly was palpated LYMPHATICS: No cervical chain or axillary nodes were noted HEMATOPOIETIC: No bruising NECK: Supple, no JVD, no thyromegaly was noted LUNGS: Clear to auscultation in all lung cardenas without rhonchi or wheezing HEART: RRR, S1, S2 present. Peripheral pulses intact, no obvious murmurs noted ABDOMEN: Soft, nontender. Positive bowel sounds, no organomegaly, normal bowel sounds EXTREMITIES: Without clubbing, cyanosis, or edema. Pedal pulses intact. Negative Homans sign NEUROLOGIC: Normal speech and tone. A&O x 3 range of motion limited by pain PSYCHIATRIC: Normal affect, normal mood. Stable SKIN: No ulcerations or rashes, good skin turgor, no jaundice VASCULAR: Good capillary refill, neurovascular bundle appears to be intact Labs: Labs: Laboratory Tests Test 07/04/21 07:55 07/04/21 09:30 07/04/21 11:49 White Blood Count 6.9 x10^3/uL (4.0-11.0) Red Blood Count 3.29 x10^6/uL (3.50-5.40) Hemoglobin 10.2 g/dL (12.0-15.5) Hematocrit 30.1 % (36.0-47.0) Mean Corpuscular Volume 91 fL (79-100) Mean Corpuscular Hemoglobin 31 pg (25-35) Mean Corpuscular Hemoglobin Concent 34 g/dL (31-37) Red Cell Distribution Width 13.9 % (11.5-14.5) Platelet Count 296 x10^3/uL (140-400) Neutrophils (%) (Auto) 72 % (31-73) Lymphocytes (%) (Auto) 16 % (24-48) Monocytes (%) (Auto) 12 % (0-9) Eosinophils (%) (Auto) 0 % (0-3) Basophils (%) (Auto) 0 % (0-3) Neutrophils # (Auto) 4.9 x10^3/uL (1.8-7.7) Lymphocytes # (Auto) 1.1 x10^3/uL (1.0-4.8) Monocytes # (Auto) 0.8 x10^3/uL (0.0-1.1) Eosinophils # (Auto) 0.0 x10^3/uL (0.0-0.7) Basophils # (Auto) 0.0 x10^3/uL (0.0-0.2) Prothrombin Time 12.8 SEC (11.7-14.0) Prothromb Time International Ratio 1.0 (0.8-1.1) Sodium Level 140 mmol/L (136-145) Potassium Level 4.4 mmol/L (3.5-5.1) Chloride Level 106 mmol/L (98-107) Carbon Dioxide Level 26 mmol/L (21-32) Anion Gap 8 (6-14) Blood Urea Nitrogen 23 mg/dL (7-20) Creatinine 1.1 mg/dL (0.6-1.0) Estimated GFR (Cockcroft-Gault) 48.0 BUN/Creatinine Ratio 21 (6-20) Glucose Level 164 mg/dL (70-99) Calcium Level 8.3 mg/dL (8.5-10.1) Total Bilirubin 0.7 mg/dL (0.2-1.0) Aspartate Amino Transf (AST/SGOT) 22 U/L (15-37) Alanine Aminotransferase (ALT/SGPT) 23 U/L (14-59) Alkaline Phosphatase 116 U/L (46-116) Total Protein 6.4 g/dL (6.4-8.2) Albumin 3.1 g/dL (3.4-5.0) Albumin/Globulin Ratio 0.9 (1.0-1.7) SARS-CoV-2 Antigen (Rapid) Negative (NEGATIVE) Glucose (Fingerstick) 167 mg/dL (70-99) Laboratory Tests Test 07/04/21 07:55 07/04/21 09:30 07/04/21 11:49 White Blood Count 6.9 x10^3/uL (4.0-11.0) Red Blood Count 3.29 x10^6/uL (3.50-5.40) Hemoglobin 10.2 g/dL (12.0-15.5) Hematocrit 30.1 % (36.0-47.0) Mean Corpuscular Volume 91 fL (79-100) Mean Corpuscular Hemoglobin 31 pg (25-35) Mean Corpuscular Hemoglobin Concent 34 g/dL (31-37) Red Cell Distribution Width 13.9 % (11.5-14.5) Platelet Count 296 x10^3/uL (140-400) Neutrophils (%) (Auto) 72 % (31-73) Lymphocytes (%) (Auto) 16 % (24-48) Monocytes (%) (Auto) 12 % (0-9) Eosinophils (%) (Auto) 0 % (0-3) Basophils (%) (Auto) 0 % (0-3) Neutrophils # (Auto) 4.9 x10^3/uL (1.8-7.7) Lymphocytes # (Auto) 1.1 x10^3/uL (1.0-4.8) Monocytes # (Auto) 0.8 x10^3/uL (0.0-1.1) Eosinophils # (Auto) 0.0 x10^3/uL (0.0-0.7) Basophils # (Auto) 0.0 x10^3/uL (0.0-0.2) Prothrombin Time 12.8 SEC (11.7-14.0) Prothromb Time International Ratio 1.0 (0.8-1.1) Sodium Level 140 mmol/L (136-145) Potassium Level 4.4 mmol/L (3.5-5.1) Chloride Level 106 mmol/L (98-107) Carbon Dioxide Level 26 mmol/L (21-32) Anion Gap 8 (6-14) Blood Urea Nitrogen 23 mg/dL (7-20) Creatinine 1.1 mg/dL (0.6-1.0) Estimated GFR (Cockcroft-Gault) 48.0 BUN/Creatinine Ratio 21 (6-20) Glucose Level 164 mg/dL (70-99) Calcium Level 8.3 mg/dL (8.5-10.1) Total Bilirubin 0.7 mg/dL (0.2-1.0) Aspartate Amino Transf (AST/SGOT) 22 U/L (15-37) Alanine Aminotransferase (ALT/SGPT) 23 U/L (14-59) Alkaline Phosphatase 116 U/L (46-116) Total Protein 6.4 g/dL (6.4-8.2) Albumin 3.1 g/dL (3.4-5.0) Albumin/Globulin Ratio 0.9 (1.0-1.7) SARS-CoV-2 Antigen (Rapid) Negative (NEGATIVE) Glucose (Fingerstick) 167 mg/dL (70-99) Assessment/Plan Assessment/Plan Left hip fracture. History of type 2 diabetes peripheral arterial disease -Mechanical fall at home imaging here showed left hip fracture -Ortho consult is planning on OR today -N.p.o. hold DVT prophylaxis until after procedure -PT OT when okay with orthopedic team -Advance diet as tolerated after surgery -Home meds as indicated -Discussed with bedside RN Justifications for Admission Other Justification STEFFANIE DEGROOT MD Jul 04, 2021 17:46
--- NOTE | 2021-07-04 18:08 | PDOC4 ---
BRIEF OPERATIVE NOTE Date: Jul 04, 2021 Pre-Op Diagnosis L distal 1/3 femur fracture osteoporosis dementia DM nicotine abuse HTN dylipidemia breast and entometrial CA hx Post-Op Diagnosis same Procedure Performed Left femur intramedullary nail Surgeon Una Ash MD Vascular Surgery Physician Sylvia Vicente PA-C Anesthesia Type: General Blood Loss 100cc Findings L femur fracture Operative Note Implant: Brenco SCN [id number] nail SYLVIA VICENTE Jul 04, 2021 18:08
[2021-07-04] MEDS ORDERED: oxyCODONE/APAP 5/325 1 TAB TABLET PO PRN (18:15)
[2021-07-04] MEDS ORDERED: MORPHINE SULFATE 2 MG/ML INJ. ONE ×2 (18:17→18:44)
[2021-07-04] MEDS: MORPHINE SULFATE 2 MG/ML INJ. IVP PRN ×4 (18:24→18:56)
[2021-07-04] MEDS ORDERED: HYDROmorphone 2 MG/ML INJ. ONE (19:08)
[2021-07-04] MEDS: HYDROmorphone 2 MG/ML INJ. IVP PRN ×2 (19:12→19:33)
[2021-07-04] MEDS: SENNOSIDES/DOCUSATE 8.6/50MG TABLET. PO SCH (21:00)
[2021-07-05] VITALS (7 sets, daily range): BP systolic 116–185; BP diastolic 46–65
[2021-07-05] MEDS: ceFAZolin SODIUM IV Push 1 GM VIAL. IVP SCH ×2 (00:08→06:03)
[2021-07-05] MEDS: fentaNYL PF VIAL 100 MCG/2 ML VIAL IVP PRN (03:23)
[2021-07-05 04:51] LABS: BASO % 0 % (0-3); EOS % 0 % (0-3); HEMATOCRIT 25.2 % (36.0-47.0); HEMOGLOBIN 8.4 g/dL (12.0-15.5); LYMPH # 0.7 x10^3/uL (1.0-4.8); LYMPH % 9 % (24-48); MEAN CORPUSCULAR HEMOGLOBIN 31 pg (25-35); MEAN CORPUSCULAR HGB CONC 33 g/dL (31-37); MEAN CORPUSCULAR VOLUME 92 fL (79-100); MONO # 0.9 x10^3/uL (0.0-1.1); MONO % 11 % (0-9); NEUT # 5.9 x10^3/uL (1.8-7.7); NEUT % 80 % (31-73); PLATELET COUNT 237 x10^3/uL (140-400); RED BLOOD COUNT 2.75 x10^6/uL (3.50-5.40); RED CELL DISTRIBUTION WIDTH 14.3 % (11.5-14.5); WHITE BLOOD COUNT 7.5 x10^3/uL (4.0-11.0)
[2021-07-05] MEDS: MORPHINE SULFATE 2 MG/ML INJ. IVP PRN (05:48)
[2021-07-05] MEDS ORDERED: CLOPIDOGREL BISULFATE 75 MG TABLET PO ONE (07:00)
[2021-07-05] MEDS: INSULIN LISPRO 300 UNITS/3 ML VIAL. SQ SCH ×3 (08:00→16:58)
[2021-07-05] MEDS: SENNOSIDES/DOCUSATE 8.6/50MG TABLET. PO SCH ×2 (08:03→21:00)
--- NOTE | 2021-07-05 09:51 | PDOC ---
[employer] PROGRESS NOTE Date of Service DOS: DATE: 07/05/21 TIME: 09:48 Chief Complaint Chief Complaint Left hip fracture. History of type 2 diabetes peripheral arterial disease -Mechanical fall at home imaging here showed left hip fracture -s/p ORIF 07/05 -PT OT when okay with orthopedic team -Advance diet as tolerated after surgery -Home meds as indicated -Discussed with bedside RN -heparin dvt prophylaxis History of Present Illness History of Present Illness 07/05 Seen and examined at bedside. Underwent procedure yesterday. A bit altered this morning not really following commands. Could still be some of the side effects of anesthesia and pain meds. Will be cautious with opiates. She is spitting out her pills speech therapy ordered. Discussed with bedside RN. PT OT ordered. Guessing will need placement. Vitals/I&O Vitals/I&O: Vital Signs Date Time Temp Pulse Resp B/P (MAP) Pulse Ox O2 Delivery O2 Flow Rate FiO2 07/05/21 08:00 Nasal Cannula 2.0 07/05/21 07:00 99.0 88 16 116/65 (82) 99 99.0 I & O 07/04/21 07/04/21 07/05/21 15:00 23:00 07:00 Intake Total 0 ml 1000 ml 60 ml Output Total 100 ml 0 ml Balance 0 ml 900 ml 60 ml Physical Exam General: Alert, Other (minimally follows commands) Heart: Regular rate, Normal S1, Normal S2 Lungs: Clear Abdomen: Normal bowel sounds, Soft, No tenderness Extremities: No edema, Normal pulses Skin: No significant lesion Labs Labs: Laboratory Tests Test 07/04/21 11:49 07/04/21 21:23 07/05/21 03:30 07/05/21 07:59 Glucose (Fingerstick) 167 mg/dL (70-99) 188 mg/dL (70-99) 163 mg/dL (70-99) White Blood Count 7.5 x10^3/uL (4.0-11.0) Red Blood Count 2.75 x10^6/uL (3.50-5.40) Hemoglobin 8.4 g/dL (12.0-15.5) Hematocrit 25.2 % (36.0-47.0) Mean Corpuscular Volume 92 fL (79-100) Mean Corpuscular Hemoglobin 31 pg (25-35) Mean Corpuscular Hemoglobin Concent 33 g/dL (31-37) Red Cell Distribution Width 14.3 % (11.5-14.5) Platelet Count 237 x10^3/uL (140-400) Neutrophils (%) (Auto) 80 % (31-73) Lymphocytes (%) (Auto) 9 % (24-48) Monocytes (%) (Auto) 11 % (0-9) Eosinophils (%) (Auto) 0 % (0-3) Basophils (%) (Auto) 0 % (0-3) Neutrophils # (Auto) 5.9 x10^3/uL (1.8-7.7) Lymphocytes # (Auto) 0.7 x10^3/uL (1.0-4.8) Monocytes # (Auto) 0.9 x10^3/uL (0.0-1.1) Eosinophils # (Auto) 0.0 x10^3/uL (0.0-0.7) Basophils # (Auto) 0.0 x10^3/uL (0.0-0.2) Assessment and Plan Assessmemt and Plan Problems Medical Problems: (1) Closed fracture of distal end of left femur Status: Acute Comment Review of Relevant I have reviewed the following items lopez (where applicable) has been applied. Medications: Current Medications Medications (Trade) Dose Ordered Sig/Patti Route PRN Reason Start Time Stop Time Status Last Admin Dose Admin Cefazolin Sodium (Ancef) 1 gm Q8HRS IVP 07/05/21 00:01 07/05/21 06:01 DC 07/05/21 06:03 Justifications for Admission Other Justification STEFFANIE DEGROOT MD Jul 05, 2021 09:50
[2021-07-05] MEDS: MORPHINE SULFATE 2 MG/ML INJ. IV PRN ×2 (10:29→16:55)
[2021-07-05] MEDS: HEPARIN for SUB-Q USE 5,000 UNIT/ML VIAL. SQ SCH ×2 (13:22→21:41)
--- NOTE | 2021-07-05 17:19 | PDOC ---
PROGRESS NOTES Date of Service DATE: 07/05/21 TIME: 17:17 Subjective Subjective Problems overnight: Objective Vital Signs Vital Signs Date Time Temp Pulse Resp B/P (MAP) Pulse Ox O2 Delivery O2 Flow Rate FiO2 07/05/21 16:55 Room Air 07/05/21 15:00 98.3 91 18 143/47 (79) 97 98.3 07/05/21 10:29 2.0 Labs Laboratory Tests Test 07/04/21 07:55 07/04/21 09:30 07/04/21 11:49 07/04/21 21:23 White Blood Count 6.9 x10^3/uL (4.0-11.0) Red Blood Count 3.29 x10^6/uL (3.50-5.40) Hemoglobin 10.2 g/dL (12.0-15.5) Hematocrit 30.1 % (36.0-47.0) Mean Corpuscular Volume 91 fL (79-100) Mean Corpuscular Hemoglobin 31 pg (25-35) Mean Corpuscular Hemoglobin Concent 34 g/dL (31-37) Red Cell Distribution Width 13.9 % (11.5-14.5) Platelet Count 296 x10^3/uL (140-400) Neutrophils (%) (Auto) 72 % (31-73) Lymphocytes (%) (Auto) 16 % (24-48) Monocytes (%) (Auto) 12 % (0-9) Eosinophils (%) (Auto) 0 % (0-3) Basophils (%) (Auto) 0 % (0-3) Neutrophils # (Auto) 4.9 x10^3/uL (1.8-7.7) Lymphocytes # (Auto) 1.1 x10^3/uL (1.0-4.8) Monocytes # (Auto) 0.8 x10^3/uL (0.0-1.1) Eosinophils # (Auto) 0.0 x10^3/uL (0.0-0.7) Basophils # (Auto) 0.0 x10^3/uL (0.0-0.2) Prothrombin Time 12.8 SEC (11.7-14.0) Prothromb Time International Ratio 1.0 (0.8-1.1) Sodium Level 140 mmol/L (136-145) Potassium Level 4.4 mmol/L (3.5-5.1) Chloride Level 106 mmol/L (98-107) Carbon Dioxide Level 26 mmol/L (21-32) Anion Gap 8 (6-14) Blood Urea Nitrogen 23 mg/dL (7-20) Creatinine 1.1 mg/dL (0.6-1.0) Estimated GFR (Cockcroft-Gault) 48.0 BUN/Creatinine Ratio 21 (6-20) Glucose Level 164 mg/dL (70-99) Calcium Level 8.3 mg/dL (8.5-10.1) Total Bilirubin 0.7 mg/dL (0.2-1.0) Aspartate Amino Transf (AST/SGOT) 22 U/L (15-37) Alanine Aminotransferase (ALT/SGPT) 23 U/L (14-59) Alkaline Phosphatase 116 U/L (46-116) Total Protein 6.4 g/dL (6.4-8.2) Albumin 3.1 g/dL (3.4-5.0) Albumin/Globulin Ratio 0.9 (1.0-1.7) 25-Hydroxy Vitamin D Total 32.6 ng/mL (30-100) SARS-CoV-2 Antigen (Rapid) Negative (NEGATIVE) Glucose (Fingerstick) 167 mg/dL (70-99) 188 mg/dL (70-99) Test 07/05/21 03:30 07/05/21 07:59 07/05/21 11:38 07/05/21 16:57 White Blood Count 7.5 x10^3/uL (4.0-11.0) Red Blood Count 2.75 x10^6/uL (3.50-5.40) Hemoglobin 8.4 g/dL (12.0-15.5) Hematocrit 25.2 % (36.0-47.0) Mean Corpuscular Volume 92 fL (79-100) Mean Corpuscular Hemoglobin 31 pg (25-35) Mean Corpuscular Hemoglobin Concent 33 g/dL (31-37) Red Cell Distribution Width 14.3 % (11.5-14.5) Platelet Count 237 x10^3/uL (140-400) Neutrophils (%) (Auto) 80 % (31-73) Lymphocytes (%) (Auto) 9 % (24-48) Monocytes (%) (Auto) 11 % (0-9) Eosinophils (%) (Auto) 0 % (0-3) Basophils (%) (Auto) 0 % (0-3) Neutrophils # (Auto) 5.9 x10^3/uL (1.8-7.7) Lymphocytes # (Auto) 0.7 x10^3/uL (1.0-4.8) Monocytes # (Auto) 0.9 x10^3/uL (0.0-1.1) Eosinophils # (Auto) 0.0 x10^3/uL (0.0-0.7) Basophils # (Auto) 0.0 x10^3/uL (0.0-0.2) Glucose (Fingerstick) 163 mg/dL (70-99) 157 mg/dL (70-99) 143 mg/dL (70-99) Laboratory Tests Test 07/04/21 21:23 07/05/21 03:30 07/05/21 07:59 07/05/21 11:38 Glucose (Fingerstick) 188 mg/dL (70-99) 163 mg/dL (70-99) 157 mg/dL (70-99) White Blood Count 7.5 x10^3/uL (4.0-11.0) Red Blood Count 2.75 x10^6/uL (3.50-5.40) Hemoglobin 8.4 g/dL (12.0-15.5) Hematocrit 25.2 % (36.0-47.0) Mean Corpuscular Volume 92 fL (79-100) Mean Corpuscular Hemoglobin 31 pg (25-35) Mean Corpuscular Hemoglobin Concent 33 g/dL (31-37) Red Cell Distribution Width 14.3 % (11.5-14.5) Platelet Count 237 x10^3/uL (140-400) Neutrophils (%) (Auto) 80 % (31-73) Lymphocytes (%) (Auto) 9 % (24-48) Monocytes (%) (Auto) 11 % (0-9) Eosinophils (%) (Auto) 0 % (0-3) Basophils (%) (Auto) 0 % (0-3) Neutrophils # (Auto) 5.9 x10^3/uL (1.8-7.7) Lymphocytes # (Auto) 0.7 x10^3/uL (1.0-4.8) Monocytes # (Auto) 0.9 x10^3/uL (0.0-1.1) Eosinophils # (Auto) 0.0 x10^3/uL (0.0-0.7) Basophils # (Auto) 0.0 x10^3/uL (0.0-0.2) Test 07/05/21 16:57 Glucose (Fingerstick) 143 mg/dL (70-99) Assessment Assessment POD# 1 Plan Plan of Care Pt seen, laying in bed, no one at bedside. RN reports pt just got morphine. Pt moves around but seems to be sleeping. Does not wake up for exam. Calf soft BL. Getting heparin q8 hrs, PT was unable to get pt out of bed today per RN. Will add SCDs. Encourage PT/OT. Pt npo from speech therapy. Justicifation of Admission Dx: Justifications for Admission: Justification of Admission Dx: Yes SYLVIA VICENTE Jul 05, 2021 17:19
[2021-07-06 00:08] LABS: HEMOGLOBIN A1C 6.5 % (4.8-5.6)
[2021-07-06 03:11] VITALS: BP 138/54
[2021-07-06] MEDS: HEPARIN for SUB-Q USE 5,000 UNIT/ML VIAL. SQ SCH ×3 (06:05→21:14)
[2021-07-06 07:00] VITALS: BP 152/63
[2021-07-06] MEDS: INSULIN LISPRO 300 UNITS/3 ML VIAL. SQ SCH ×3 (07:45→17:00)
[2021-07-06] MEDS: SENNOSIDES/DOCUSATE 8.6/50MG TABLET. PO SCH ×2 (07:46→21:00)
[2021-07-06] MEDS: MORPHINE SULFATE 2 MG/ML INJ. IV PRN (09:51)
[2021-07-06 11:00] VITALS: BP 139/53
[2021-07-06] MEDS: IV NORMAL SALINE 1000ML BAG 1,000 ML IV SCH ×2 (13:02→22:45)
--- NOTE | 2021-07-06 13:19 | PDOC ---
[employer] PROGRESS NOTE Date of Service DOS: DATE: 07/06/21 TIME: 13:16 Chief Complaint Chief Complaint Left hip fracture. History of type 2 diabetes peripheral arterial disease -Mechanical fall at home imaging here showed left hip fracture -s/p ORIF 07/05 -PT OT when okay with orthopedic team -Advance diet as tolerated after surgery -Home meds as indicated -Discussed with bedside RN -heparin dvt prophylaxis History of Present Illness History of Present Illness 07/06 Patient seen and examined at bedside. Still altered failed speech assessment. Stable in terms of recent surgery. Skilled placement, social work looking into this. PT/OT as tolerated 07/05 Seen and examined at bedside. Underwent procedure yesterday. A bit altered this morning not really following commands. Could still be some of the side effects of anesthesia and pain meds. Will be cautious with opiates. She is spitting out her pills speech therapy ordered. Discussed with bedside RN. PT OT ordered. Guessing will need placement. Vitals/I&O Vitals/I&O: Vital Signs Date Time Temp Pulse Resp B/P (MAP) Pulse Ox O2 Delivery O2 Flow Rate FiO2 07/06/21 11:00 97.9 90 139/53 (81) 96 Room Air 97.9 07/06/21 07:00 19 2.0 I & O 07/05/21 07/05/21 07/06/21 15:00 23:00 07:00 Intake Total 0 ml 0 ml Balance 0 ml 0 ml Physical Exam General: Alert, Cooperative Heart: Regular rate, Normal S1, Normal S2 Lungs: Clear Abdomen: Normal bowel sounds, Soft, No tenderness Extremities: No edema, Normal pulses Skin: No significant lesion Labs Labs: Laboratory Tests Test 07/05/21 16:57 07/05/21 20:18 07/06/21 07:38 07/06/21 11:46 Glucose (Fingerstick) 143 mg/dL (70-99) 150 mg/dL (70-99) 127 mg/dL (70-99) 109 mg/dL (70-99) Assessment and Plan Assessmemt and Plan Problems Medical Problems: (1) Closed fracture of distal end of left femur Status: Acute Comment Review of Relevant I have reviewed the following items lopez (where applicable) has been applied. Medications: Current Medications Medications (Trade) Dose Ordered Sig/Patti Route PRN Reason Start Time Stop Time Status Last Admin Dose Admin Heparin Sodium (Porcine) (Heparin Sodium) 5,000 unit Q8HRS SQ 07/05/21 14:00 07/06/21 13:01 Sodium Chloride 1,000 ml @ 100 mls/hr Q10H IV 07/06/21 12:45 07/06/21 13:02 Justifications for Admission Other Justification STEFFANIE DEGROOT MD Jul 06, 2021 13:19
[2021-07-06 15:00] VITALS: BP 138/62
--- NOTE | 2021-07-06 16:53 | OP ---
DATE OF SURGERY: 07/04/2021 PREOPERATIVE DIAGNOSES: 1. Left distal femur fracture, closed. 2. Cognitive impairment. 3. Frequent falls. POSTOPERATIVE DIAGNOSES: 1. Left distal femur fracture, closed. 2. Cognitive impairment. 3. Frequent falls. 4. Osteoporosis. PROCEDURE: Left femoral retrograde nail. SURGEON: Una Ash MD COMPUTER SYSTEMS TECHNICIAN: MAHI Shore ANESTHESIA: General. COMPLICATIONS: None. ESTIMATED BLOOD LOSS: 200 or less. IMPLANTS USED: [place] supracondylar nail, 12 x 340. INDICATIONS FOR PROCEDURE: The patient is a 76-year-old lives alone in her own home. Apparently, she has been having frequent falls. Yesterday's fall resulted in the aforementioned injury. She was admitted to the hospitalist service. She was given risks, benefits, complications and alternatives as well as her DPOA and they both wanted to proceed with the procedure on an urgent basis. DESCRIPTION OF PROCEDURE: Once the correct operative site was identified and informed consent was obtained, the patient was taken back to the operating suite in supine position. General anesthesia was administered and a timeout was done. The patient was identified as the patient and the left side was identified as the correct operative site. She was given preoperative antibiotic prophylaxis, and the left lower extremity was prepped and draped in a sterile fashion after pre-prep was done. The limb was placed over a medium triangle. A 1-inch incision was made medial to the patellar tendon through which the starting guidewire was inserted. Using AP and lateral fluoroscopic guidance, the guidewire was inserted into the distal femur. The opening reamer was applied over this and then both were removed. I then performed a reduction maneuver and once the fracture reduction was optimized, a long guidewire was passed from the distal femur up to the level of the lesser trochanter. The femoral bone was quite osteoporotic. We barely got any chatter reaming at size 12. The femur was reamed up to 13.5 in preparation for the 12 mm nail. The nail was inserted over the wire, which was then removed. Using the outrigger device and 4 total distal incisions measuring about an inch, the nail was locked distally x4. Using perfect circles and a 1-inch anterior incision, the nail was locked statically x1 from anterior to posterior. Entire case was guided with fluoroscopy. Once final fixation was in place, final AP and lateral fluoroscopic images were taken and saved to the PACS. Wounds were thoroughly irrigated and closed in layered fashion with 0 Vicryl in the deep soft tissue, 2-0 Monocryl to reapproximate the skin followed by 2-0 nylons for final skin closure. Sterile dressings were applied. The patient tolerated the procedure well. She was taken in stable condition to the postoperative care unit under care of anesthesia. POSTOPERATIVE PLAN: Weightbearing as tolerated. She will have 24 hours prophylactic antibiotics. She will need DVT prophylaxis for at least 30 days. Follow up in [address]: Mandi TID: [id number]
[2021-07-06 19:00] VITALS: BP 148/50
[2021-07-06 22:59] VITALS: BP 151/59
[2021-07-07 03:17] VITALS: BP 145/61
[2021-07-07] MEDS: HEPARIN for SUB-Q USE 5,000 UNIT/ML VIAL. SQ SCH ×3 (06:00→21:11)
[2021-07-07 07:00] VITALS: BP 162/72
[2021-07-07] MEDS: SENNOSIDES/DOCUSATE 8.6/50MG TABLET. PO SCH ×2 (07:09→19:40)
[2021-07-07] MEDS: INSULIN LISPRO 300 UNITS/3 ML VIAL. SQ SCH ×3 (07:54→16:41)
[2021-07-07] MEDS: IV NORMAL SALINE 1000ML BAG 1,000 ML IV SCH ×3 (08:45→21:16)
--- NOTE | 2021-07-07 08:58 | NUR ---
IV fluids nonadministered by this RN, previous bag still infusing. Refer to [facility] for additional details.
[2021-07-07 10:46] VITALS: BP 151/53
--- NOTE | 2021-07-07 11:48 | NUR ---
SS following for discharge planning. SS reviewed pt chart and discussed with pt RN. Pt is from home and is currently on room air. PT/OT recommended penitentiary unit. NPO. ST following. Per RN, pt not oriented. SS contacted pt's son and daughter and left voicemail's requesting return calls to discuss discharge planning. Pt's RN notified. SS will continue to follow for discharge planning. Addendum: 07/07/21 at 1329 by MICHELLE RAMOS SS SS received phone contact from pt's DPOA requesting penitentiary referrals to #1 [facility], ; fax [phone], and #2 [facility], ; fax [phone], when medically ready. Pt remains NPO at this time. ST following. COVID19 PCR test requested for placement.
[2021-07-07 15:00] VITALS: BP 170/58
[2021-07-07 19:00] VITALS: BP 162/49
--- NOTE | 2021-07-07 22:20 | PDOC ---
[employer] PROGRESS NOTE Date of Service DOS: DATE: 07/07/21 TIME: 22:19 Chief Complaint Chief Complaint Left hip fracture. History of type 2 diabetes peripheral arterial disease -Mechanical fall at home imaging here showed left hip fracture -s/p ORIF 07/05 -PT OT when okay with orthopedic team -Advance diet as tolerated after surgery -Home meds as indicated -Discussed with bedside RN -heparin dvt prophylaxis Needs placement History of Present Illness History of Present Illness 07/07 Patient evaluated examined at bedside. Doing well continue working with therapy. Looking for placement. Once accepted can discharge if approved by orthopedics. 07/06 Patient seen and examined at bedside. Still altered failed speech assessment. Stable in terms of recent surgery. Skilled placement, social work looking into this. PT/OT as tolerated 07/05 Seen and examined at bedside. Underwent procedure yesterday. A bit altered this morning not really following commands. Could still be some of the side effects of anesthesia and pain meds. Will be cautious with opiates. She is spitting out her pills speech therapy ordered. Discussed with bedside RN. PT OT ordered. Guessing will need placement. Vitals/I&O Vitals/I&O: Vital Signs Date Time Temp Pulse Resp B/P (MAP) Pulse Ox O2 Delivery O2 Flow Rate FiO2 07/07/21 19:00 98.0 88 17 162/49 (86) 100 Room Air 98.0 07/06/21 07:00 2.0 I & O 07/06/21 07/06/21 07/07/21 15:00 23:00 07:00 Intake Total 0 ml 0 ml 0 ml Balance 0 ml 0 ml 0 ml Physical Exam General: Alert, Cooperative Heart: Regular rate, Normal S1, Normal S2 Lungs: Clear Abdomen: Normal bowel sounds, Soft, No tenderness Extremities: No edema, Normal pulses Skin: No significant lesion Labs Labs: Laboratory Tests Test 07/07/21 07:13 07/07/21 11:25 07/07/21 16:31 07/07/21 19:25 Glucose (Fingerstick) 108 mg/dL (70-99) 86 mg/dL (70-99) 100 mg/dL (70-99) 103 mg/dL (70-99) Assessment and Plan Assessmemt and Plan Problems Medical Problems: (1) Closed fracture of distal end of left femur Status: Acute Comment Review of Relevant I have reviewed the following items lopez (where applicable) has been applied. Justifications for Admission Other Justification STEFFANIE DEGROOT MD Jul 07, 2021 22:20
[2021-07-07 23:15] VITALS: BP 143/55
[2021-07-08 03:00] VITALS: BP 162/57
[2021-07-08] MEDS: HEPARIN for SUB-Q USE 5,000 UNIT/ML VIAL. SQ SCH ×3 (05:57→21:09)
[2021-07-08 07:00] VITALS: BP 142/58
[2021-07-08] MEDS: IV NORMAL SALINE 1000ML BAG 1,000 ML IV SCH ×2 (07:01→17:20)
[2021-07-08] MEDS: INSULIN LISPRO 300 UNITS/3 ML VIAL. SQ SCH ×3 (07:32→16:35)
[2021-07-08] MEDS: SENNOSIDES/DOCUSATE 8.6/50MG TABLET. PO SCH ×2 (08:25→21:07)
[2021-07-08 11:00] VITALS: BP 147/46
--- NOTE | 2021-07-08 11:15 | NUR ---
SS following up with discharge planning. SS reviewed pt chart and discussed with pt RN. Pt is currently on room air. COVID19 test pending for placement. NPO. ST following. GI consulted. PT/OT recommended snf unit. Pt's family requesting referrals to [facility], ; fax [phone], and [facility], ; fax [phone], when medically appropriate. SS will continue to follow for discharge planning.
--- NOTE | 2021-07-08 11:54 | PDOC2 ---
GI CONSULT Date of Service: DATE: 07/08/21 TIME: 11:36 Reason For Consult: PEG HPI: HPI: 76 y/o female s/p fall at home, left femur fracture s/p nailing 07/04/21. D/w nurse - h/o dementia/memory loss but was living at home alone. Per other notes - brother calls to check on her every night. AMS after surgery, abnormal swallow eval (below). We're asked to see for PEG - not yet discussed w/ pt or family. D/w therapy - still confused, doesn't believe she had surgery. For me, pt says waqar, able to say the year in 2021 though not sure what hospital she's at or why she's here. I asked if she wants a feeding tube and she said no, said she didn't have any family around but "that's not entirely true," also mentioned something about "witch doctors." Summary list includes Plavix - was ordered for 07/05/21 but looks like not administered. PMH: PMH: per chart: HTN, HLD, DM, dementia, endometrial and breast cancer, PVD, dementia/memory loss, falls, osteoporosis BLE vascular bypass, hysterectomy, bilateral mastectomy, left knee surgery FH: Family History: No pertinent hx (unable to obtain) Social History: Smoke: Quit (per other notes - vapes) ALCOHOL: none (per other notes) ROS: Difficult to obtain. Vitals: Vitals: Vital Signs Date Time Temp Pulse Resp B/P (MAP) Pulse Ox O2 Delivery O2 Flow Rate FiO2 07/08/21 07:04 Room Air 07/08/21 07:00 98.4 73 16 142/58 (86) 97 98.4 Labs: Labs: Laboratory Tests Test 07/07/21 16:31 07/07/21 19:25 07/08/21 07:14 Glucose (Fingerstick) 100 mg/dL (70-99) 103 mg/dL (70-99) 79 mg/dL (70-99) Allergies: Coded Allergies: No Known Drug Allergies (Unverified , 07/03/21) Medications: see EMR Imaging: Imaging: Femur, Hip/Pelv, Knee, CXR 07/03 FINDINGS: Chest: Normal cardiomediastinal silhouette. No focal consolidation. No pleural effusion or pneumothorax. No acute osseous process. Right Mediport catheter tip locates in the mid SVC. Pelvis and proximal femur: Acute comminuted displaced and impacted distal left femoral diaphyseal fracture with extension to the articular surface. Large soft tissue swelling about the fracture. No dislocation or subluxation. Tricompartment osteoarthritis of the knee. [id number] bilateral hip osteoarthritis. IMPRESSION: 1. No acute cardiopulmonary findings. 2. Acute comminuted impacted distal left femoral diaphyseal fracture. Left Tib-Fib X-Ray 07/03 IMPRESSION: Additional views of the patient's comminuted and displaced right distal femoral diaphysis fracture. Severe degenerative changes of the lateral compartment of the knee. Moderate medial and patellofemoral compartment degenerative changes. No acute tibia/fibular fracture. LE CT 07/04 IMPRESSION: Mildly displaced distal femoral metadiaphyseal fracture. CORN SHELLER OPERATOR Bedside Swallow Eval 07/05/21 Mod oropharyngeal dysphagia noted in eval limited by poor pt participation. Suspect post op mental status changes contribute to lack of awareness to task of PO intake. In addition, per s/s from RN report, some type of pharyngeal swelling may also contribute as a result of difficulty intubation/extubation during surgery process. Return to PO intake likely dependent on improved mental status &/or possible pharyngeal healing. See full report in Interventions. RECOMMENDATIONS: Continue NPO and attempt gentle oral care (given possible lingual bruising viewed during eval). Will continue CORN SHELLER OPERATOR f/u per POC for dysphagia. CORN SHELLER OPERATOR 07/06/21 IMPRESSIONS: Mod oropharyangeal dysphagia. Non-functional swallow. Inconsistent response to tsp when presented (though improved from 07/05). Increased time required to initiate swallow d/t oral holding and delay. Suspect post op mental status changes contribute to current impaired swallow function. In addition, per s/s from RN report, some type of pharyngeal swelling r/t intubation for surgery may also contribute. See eval for further details re: same. Return to PO intake likely dependent on improved mental status &/or possible pharyngeal healing. RECOMMENDATIONS: Continue NPO and attempt gentle oral care (given possible oral bruising). Will continue CORN SHELLER OPERATOR f/u for dysphagia and to initiate po diet if/when indicated. CORN SHELLER OPERATOR 07/07/21 IMPRESSIONS: Improving alertness and oropharyangeal dysphagia. Remains at high risk of aspiration r/t mental status impairment which c/t oral holding, and oropharyngeal delay across consistencies. Would not be able to maintain nutrition via po if diet initiated at this time given observed delays and need for verbal cues to swallow. Return to PO intake dependent on improved mental status. May be able to advance to po diet in near future if gains noted this date continue. RECOMMENDATIONS: Continue NPO and attempt gentle oral care (given possible oral bruising noted previously). Will continue CORN SHELLER OPERATOR f/u for dysphagia and to initiate po diet if/when indicated. PE: GEN: NAD - in chair, just worked with therapy, having glucose checked HEENT: Atraumatic, PERRL LUNGS: CTAB HEART: RRR ABD: NABS, S/ND/NT EXTREMITY: No edema SKIN: No rashes, no jaundice NEURO/PSYCH: confused, drowsy A/P: A/P: Left femur fracture s/p nailing AMS Abnormal swallow eval - high risk for aspiration due to mental status - oral holding and oropharyngeal delay, would not be able to maintain nutrition via PO currently Rapid COVID negative -- CORN SHELLER OPERATOR evals ongoing, follow these. Available to discuss PEG procedure/possible risks w/ family. BOB COLLINS Jul 08, 2021 11:54
[2021-07-08 19:00] VITALS: BP 147/60
--- NOTE | 2021-07-08 21:08 | PDOC ---
[employer] PROGRESS NOTE Date of Service DOS: DATE: 07/08/21 TIME: 21:08 Chief Complaint Chief Complaint Left hip fracture. History of type 2 diabetes peripheral arterial disease -Mechanical fall at home imaging here showed left hip fracture -s/p ORIF 07/05 -PT OT when okay with orthopedic team -Advance diet as tolerated after surgery -Home meds as indicated -Discussed with bedside RN -heparin dvt prophylaxis Needs placement History of Present Illness History of Present Illness 07/08 Evaluated examined at bedside. Continue current. Discharge once stable for placement. 07/07 Patient evaluated examined at bedside. Doing well continue working with octavia wilkins. Looking for placement. Once accepted can discharge if approved by orthopedics. 07/06 Patient seen and examined at bedside. Still altered failed speech assessment. Stable in terms of recent surgery. Skilled placement, social work looking into this. PT/OT as tolerated 07/05 Seen and examined at bedside. Underwent procedure yesterday. A bit altered this morning not really following commands. Could still be some of the side effects of anesthesia and pain meds. Will be cautious with opiates. She is spitting out her pills speech therapy ordered. Discussed with bedside RN. PT OT ordered. Guessing will need placement. Vitals/I&O Vitals/I&O: Vital Signs Date Time Temp Pulse Resp B/P (MAP) Pulse Ox O2 Delivery O2 Flow Rate FiO2 07/08/21 19:00 97.8 77 17 147/60 (89) 97 Room Air 97.8 I & O 07/07/21 07/07/21 07/08/21 15:00 23:00 07:00 Intake Total 975 ml 0 ml 950 ml Balance 975 ml 0 ml 950 ml Physical Exam General: Alert, Cooperative Heart: Regular rate, Normal S1, Normal S2 Lungs: Clear Abdomen: Normal bowel sounds, Soft, No tenderness Extremities: No edema, Normal pulses Skin: No significant lesion Labs Labs: Laboratory Tests Test 07/08/21 07:14 07/08/21 11:30 07/08/21 16:22 07/08/21 18:34 Glucose (Fingerstick) 79 mg/dL (70-99) 90 mg/dL (70-99) 108 mg/dL (70-99) 126 mg/dL (70-99) Assessment and Plan Assessmemt and Plan Problems Medical Problems: (1) Closed fracture of distal end of left femur Status: Acute Comment Review of Relevant I have reviewed the following items lopez (where applicable) has been applied. Justifications for Admission Other Justification STEFFANIE DEGROOT MD Jul 08, 2021 21:08
[2021-07-08 22:53] VITALS: BP 160/54
[2021-07-09 02:37] VITALS: BP 142/61
[2021-07-09] MEDS: HEPARIN for SUB-Q USE 5,000 UNIT/ML VIAL. SQ SCH ×2 (05:52→14:00)
[2021-07-09] MEDS: IV NORMAL SALINE 1000ML BAG 1,000 ML IV SCH (05:52)
[2021-07-09 07:00] VITALS: BP 148/50
[2021-07-09] MEDS: SENNOSIDES/DOCUSATE 8.6/50MG TABLET. PO SCH (07:21)
[2021-07-09] MEDS: INSULIN LISPRO 300 UNITS/3 ML VIAL. SQ SCH ×2 (07:21→11:44)
[2021-07-09 11:00] VITALS: BP 143/50
--- NOTE | 2021-07-09 11:15 | PDOC ---
Date of Service: DATE: 07/09/21 TIME: 11:12 Subjective: Subjective: Therapy present - pt cheerful, still pretty fuzzy - can't tell me if she ate breakfast, does know she needs coffee w/ coffeemate. Objective: Objective: D/w nurse - declined breakfast this morning, ate 25% last night. D/w SCHOOL ADMISSIONS REPRESENTATIVE yesterday. Speech Path 07/08/21 Mental status con't to improve. Swallow now safe for modified diet. Efficiency remains a problem as pt demo's variable oral holding of all bolus consistencies. However, when encouraged to feed herself, bolus holding occurred less frequently. No s/s aspiration across multiple trials of puree, thin and honey thick liquids. However, bolus holding thin>honey thick. IMPRESSIONS: Safe but inefficient swallow. Intact swallow function w/negative impact on timing from cognitive impairment at present. If mental status con't to improve and bolus holding becomes less of an issue, pt may be able to maintain nutrition via po intake. It is unclear at this time if that will be attainable in the immediate future. Would initiate po diet and consult dietitian re: intake meeting nutritional needs? RECOMMENDATIONS: Initiate dysphagia I /puree diet w/honey thick liquids. Precautions as posted including sit upright for all po intake and ENCOURAGE PT TO FEED SELF as this facilitates timing of pt swallow. Vital Signs: Vital Signs Date Time Temp Pulse Resp B/P (MAP) Pulse Ox O2 Delivery O2 Flow Rate FiO2 07/09/21 07:30 Room Air 07/09/21 07:00 98.0 74 20 148/50 (82) 98 98.0 Labs: Laboratory Tests Test 07/08/21 11:30 07/08/21 16:22 07/08/21 18:34 07/09/21 07:15 Glucose (Fingerstick) 90 mg/dL (70-99) 108 mg/dL (70-99) 126 mg/dL (70-99) 100 mg/dL (70-99) PE: GEN: NAD - working w/ therapy - trying hard to get her sock on LUNGS: room air HEART: RR per chart ABD: non-distended NEURO/PSYCH: pleasantly confused A/P: Left femur fracture s/p nailing AMS w/ abnormal swallow eval -- Dysphagia diet ordered - not taking much so far - observe PEG-bal, hopefully mental status and appetite will improve. Justicifation of Admission Dx: Justifications for Admission: Justification of Admission Dx: Yes BOB COLLINS Jul 09, 2021 11:15
--- NOTE | 2021-07-09 11:46 | NUR ---
SS following up with discharge planning. SS reviewed pt chart and discussed with pt RN. Pt is currently on room air. PO diet. COVID19 negative. PT/OT recommended detention unit. Referrals sent to [facility], ; fax [phone], and [facility], ; fax [phone]. [facility] declined. [facility] accepted. Bed available today. Physician notified. Currently awaiting discharge orders. SS will continue to follow for discharge planning. Addendum: 07/09/21 at 1233 by MICHELLE RAMOS SS Discharge orders received and sent to [facility]. Pt will discharge today and go to [facility] at 1400 via [facility] transport. Pt, pt's RN, and pt's family notified.
[2021-07-09] MEDS ORDERED: OXYC1TAB15 PO (11:50)
--- NOTE | 2021-07-09 11:53 | SNU/HH DC ---
DISCHARGE ORDERS DISCHARGE INFORMATION: DISCHARGE DATE: Jul 09, 2021 FINAL DIAGNOSIS Problems Medical Problems: (1) Closed fracture of distal end of left femur Status: Acute CONDITION ON DISCHARGE: Stable CODE STATUS: Code Status: Full FPC: SNF STAY <30 DAYS: Yes POST DISCHARGE ORDERS: ACTIVITY ORDERS: Activity as tolerated WEIGHT BEARING STATUS: As tolerated DIET AFTER DISCHARGE: Cardiac WOUND/INCISION CARE: No wound care needed CHECKS AFTER DISCHARGE: CHECKS AFTER DISCHARGE: Check blood press - daily FOLLOW-UP: ADDITIONAL FOLLOW-UP: Primary care provider in 1-2 weeks TREATMENT/EQUIPMENT ORDERS: Physical Therapy For: Evalulation/Treatment Occupational Therapy For: Evaluation/Treatment Speech Language Pathology For: Evaluation/Treatment DISCHARGE MEDICATIONS: Home Meds Active Scripts Oxycodone/Apap 5-325 (PERCOCET 5-325 MG TABLET ) 1 Each Tablet, 1 TAB PO PRN Q4HRS PRN for MODERATE TO SEVERE PAIN for 10 Days, #20 TAB Prov:STEFFANIE DEGROOT MD 07/09/21 Reported Medications Metformin Hcl (METFORMIN HCL) 1,000 Mg Tablet, 1000 MG PO DAILYWBKFT for ANTI- DIABETIC, TAB 0 Refills 07/04/21 Oxybutynin Chloride (OXYBUTYNIN CHLORIDE) 5 Mg Tablet, 5 MG PO BID for unknown, TAB 07/04/21 Clopidogrel Bisulfate (CLOPIDOGREL) 75 Mg Tablet, 75 MG PO DAILY for TO PREVENT BLOOD CLOTS, #30 TAB 0 Refills 07/04/21 Atorvastatin Calcium (ATORVASTATIN CALCIUM) 20 Mg Tablet, 20 MG PO DAILY for FOR CHOLESTEROL, #30 TAB 0 Refills 07/04/21 Gabapentin (GABAPENTIN) 600 Mg Tablet, 300 MG PO BID for nerve pain, TAB 07/04/21 Amlodipine Besylate/Benazepril (AMLODIPINE-BENAZEPRIL 5-40 MG) 1 Each Capsule, 1 EACH PO DAILY for bp, #1 CAP 07/04/21 STEFFANIE DEGROOT MD Jul 09, 2021 11:53
--- NOTE | 2021-07-09 12:49 | NUR ---
This RN called report to NONI Emery of [facility] at ext [phone].
--- NOTE | 2021-07-09 14:32 | NUR ---
Pt left unit at 1400 by wheelchair via transportation. Pt's IV removed without complication, VSS. Discharge paperwork sent with pt.
== END 2021-07-09 14:34 | DRG 480 ==
LOC: ER 20:01 → 5 NORTH 23:18 → UNDODISIN 07-07 15:42
PROVIDERS: ADMIT Internal Medicine; ATTEND Internal Medicine
PROC: 5A0935A Assistance with Respiratory Ventilation, Less than 24 Consecutive Hours, High Flow/Velocity Cannula (ICD-10-PCS; 2021-07-04)
PROC: 0QS706Z Reposition Left Upper Femur with Intramedullary Internal Fixation Device, Open Approach (ICD-10-PCS; principal; 2021-07-04 16:00)
DX: S72.302A Unspecified fracture of shaft of left femur, initial encounter for closed fracture (principal); S72.301A Unspecified fracture of shaft of right femur, initial encounter for closed fracture; E44.0 Moderate protein-calorie malnutrition; Z68.1 Body mass index [BMI] 19.9 or less, adult; E11.51 Type 2 diabetes mellitus with diabetic peripheral angiopathy without gangrene; E78.00 Pure hypercholesterolemia, unspecified; E78.5 Hyperlipidemia, unspecified; F03.90 Unspecified dementia, unspecified severity, without behavioral disturbance, psychotic disturbance, mood disturbance, and anxiety; I10 Essential (primary) hypertension; M81.0 Age-related osteoporosis without current pathological fracture; R29.6 Repeated falls; S72.002A Fracture of unspecified part of neck of left femur, initial encounter for closed fracture; Z82.49 Family history of ischemic heart disease and other diseases of the circulatory system; Z85.3 Personal history of malignant neoplasm of breast; Z85.42 Personal history of malignant neoplasm of other parts of uterus; Z87.891 Personal history of nicotine dependence; Z90.13 Acquired absence of bilateral breasts and nipples; Z90.710 Acquired absence of both cervix and uterus; W18.39XA Other fall on same level, initial encounter; Y93.89 Activity, other specified; Y92.89 Other specified places as the place of occurrence of the external cause; Y99.8 Other external cause status
CPT/HCPCS: 36415; 71045; 73501; 73552; 73560; 73590; 73700; 76000; 80053; 82306; 82962; 83036; 85025; 85610; 87426; 96374; 96375; 96376; A4209; A4930; A6223; A6257; A6402; A6450; A6454; C1713; C1769; J0690; J1100; J1170; J1644; J1815; J2270; J2405; J2704; J2710; J3010; J3490; J7030; J7120; U0003; 92526-GN; 92610-GN; 97110-GP; 97530-GO; 97530-GP; 97535-GO; 99285-25; G0378

== ENCOUNTER 2021-07-14 12:45 | Inpatient (IN) | payer MEDICARE ==
[~2021-07-14] VITALS: Ht 154.9 cm; Wt 57.9 kg
[2021-07-14] VITALS (8 sets, daily range): BP systolic 86–166; BP diastolic 39–84
[~2021-07-14 12:45] MED LIST: ATOR20TA58 PO; CLOP75TA PO; GABA600T7 PO; METF10007 PO; OXYB5TAB10 PO; OXYC1TAB15 PO; [UNRECOGNIZED DRUG - CODE] PO
[2021-07-14] MEDS ORDERED: FUROSEMIDE 20 MG/2 ML VIAL. IVP ONE (15:45)
[2021-07-14] MEDS ORDERED: HYDROcodone/APAP 5/325MG 1 TAB TABLET PO PRN (15:45)
[2021-07-14] MEDS ORDERED: CALCIUM CARBONATE 500 MG TAB.CHEW PO PRN (15:45)
[2021-07-14] MEDS ORDERED: ACETAMINOPHEN 325 MG TABLET. PO PRN (15:45)
[2021-07-14] MEDS ORDERED: ONDANSETRON PF 4 MG/2 ML VIAL. IVP PRN (15:45)
[2021-07-14] MEDS ORDERED: MAG HYDROX/ALUMINUM HYD/SIMETH 30 ML ORAL.SUSP PO PRN (15:45)
[2021-07-14] MEDS ORDERED: MAGNESIUM HYDROXIDE 2,400 MG/30 ML ORAL.SUSP. PO PRN (15:45)
[2021-07-14 15:48] LABS: BASO % 1 % (0-3); EOS # 0.1 x10^3/uL (0.0-0.7); EOS % 1 % (0-3); HEMATOCRIT 19.5 % (36.0-47.0); LYMPH % 17 % (24-48); MEAN CORPUSCULAR HEMOGLOBIN 31 pg (25-35); MEAN CORPUSCULAR HGB CONC 33 g/dL (31-37); MEAN CORPUSCULAR VOLUME 93 fL (79-100); MONO # 0.5 x10^3/uL (0.0-1.1); MONO % 9 % (0-9); NEUT % 72 % (31-73); PLATELET COUNT 364 x10^3/uL (140-400); RED BLOOD COUNT 2.09 x10^6/uL (3.50-5.40); RED CELL DISTRIBUTION WIDTH 15.3 % (11.5-14.5); WHITE BLOOD COUNT 5.6 x10^3/uL (4.0-11.0)
--- NOTE | 2021-07-14 15:49 | PDOC1 ---
History and Physical Date of Admission Date of Admission DATE: 07/14/21 TIME: 15:41 Identification/Chief Complaint Chief Complaint Anemia Source Source: Caregiver, Chart review History of Present Illness History of Present Illness Patient is a 76-year-old female with past medical history HTN, HLD, DM2, who presents from [facility] rehab due to anemia. She was recently discharged from [facility] after recent femur fracture with ORIF on 07/04/2021. Labs on discharge showed hemoglobin of 8.4, hematocrit 25.2, and hemoglobin A1c 6.5. Today at [facility] she reportedly had a hemoglobin of 6.3. Nursing staff at [facility] report ongoing confusion and a nontraumatic fall. Today my exam she remains somewhat confused and generally edematous. Patient been admitted for further medical management. Past Medical History Past Medical History Breast cancer, Diabetes-Type II, Vascular Disease Past Surgical History Past Surgical History bilateral masectomy, multiple bypasses/stents in b/l LE Family History Family History: Hypertension Social History Smoke: No ALCOHOL: none Drugs: None Current Medications Current Medications Current Medications Furosemide (Lasix) 20 mg 1X ONCE IVP ; Start 07/14/21 at 15:45; Stop 07/14/21 at 15:46; Status UNV Atorvastatin Calcium (Lipitor) 20 mg DAILY PO ; Start 07/15/21 at 09:00; Status UNV Clopidogrel Bisulfate (Plavix) 75 mg DAILY PO ; Start 07/15/21 at 09:00; Status UNV Oxybutynin Chloride (Ditropan) 5 mg BID PO ; Start 07/14/21 at 21:00; Status UNV Oxycodone/ Acetaminophen (Percocet 5/325) 1 tab PRN Q4HRS PRN PO MODERATE TO SEVERE PAIN; Start 07/14/21 at 15:45; Status UNV Non-Formulary Medication (Amlodipine Besylate/ Benazepril (Amlodipine-Benazepril 5-40 Mg)) 1 each DAILY PO ; Start 07/15/21 at 09:00; Status UNV Non-Formulary Medication (Gabapentin ) 300 mg BID PO ; Start 07/14/21 at 21:00; Status UNV Ondansetron HCl (Zofran) 4 mg PRN Q6HRS PRN IVP NAUSEA/VOMITING; Start 07/14/21 at 15:45; Status UNV Al Hydroxide/Mg Hydroxide (Mylanta Plus Xs) 30 ml PRN Q3HRS PRN PO HEARTBURN / GAS; Start 07/14/21 at 15:45; Status UNV Active Scripts Active Percocet 5-325 Mg Tablet (Oxycodone/Acetaminophen) 1 Each Tablet 1 Tab PO PRN Q4HRS PRN 10 Days Reported Metformin Hcl 1,000 Mg Tablet 1,000 Mg PO DAILYWBKFT Oxybutynin Chloride 5 Mg Tablet 5 Mg PO BID Clopidogrel (Clopidogrel Bisulfate) 75 Mg Tablet 75 Mg PO DAILY Atorvastatin Calcium 20 Mg Tablet 20 Mg PO DAILY Gabapentin 600 Mg Tablet 300 Mg PO BID Amlodipine-Benazepril 5-40 Mg (Amlodipine Besylate/Benazepril) 1 Each Capsule 1 Each PO DAILY Allergies Allergies: Coded Allergies: No Known Drug Allergies (Unverified , 07/03/21) ROS Review of System GENERAL: No history of weight change, weakness or fevers. SKIN: No bruising, hair changes or rashes. EYES: No blurred, double or loss of vision. NOSE AND THROAT: No history of nosebleeds, hoarseness or sore throat. HEART: Denies chest pain, denies palpitations. LUNGS: Denies cough, hemoptysis, wheezing or shortness of breath. GASTROINTESTINAL: Denies nausea, vomiting, abdominal pain. GENITOURINARY: Denies dysuria, frequency, urgency, hematuria. NEUROLOGIC: Denies history of numbness, tingling, tremor or weakness. PSYCHIATRIC: Denies anxiety, denies depression. ENDOCRINE: No history of heat or cold intolerance, polyuria or polydipsia. EXTREMITIES: Denies muscle weakness, joint pain, pain on walking or stiffness. Physical Exam Physical Exam General: Alert, Oriented X1, Cooperative, No acute distress HEENT: PERRLA, EOMI Lungs: Decreased breath sounds bilaterally, Normal air movement Heart: RRR, no murmurs Cardiovascular: S1, S2 Abdomen: Normal bowel sounds, Soft, No tenderness Extremities: 2+ edema to bilateral lower extremities. Weeping edema to bilateral upper extremities. No clubbing, No cyanosis Skin: No rashes, No significant lesion Neuro: Normal speech, Normal tone, Sensation intact Psych/Mental Status: Slightly confused, Mood NL VTE Prophylaxis Ordered VTE Prophylaxis Devices: Yes VTE Pharmacological Prophylaxi: No Assessment/Plan Assessment/Plan Anemia Confusion/AMS DM2 History of recent left femur fracture Plan: Order 1 unit PRBC CMP, CBC with differential UA with culture, blood cultures, chest x-ray pending Order fecal occult blood to observe for any signs of ongoing bleeding CT head pending Resume home medications FEN - ADA diet PPX - SCDs due to concern of ongoing bleeding FULL CODE/surrogate decision maker is her sister (Мария Landsi) Dispo - inpatient for above Justifications for Admission Other Justification ISRA GALEANA MD Jul 14, 2021 15:49
[2021-07-14 15:50] LABS: HEMOGLOBIN 6.4 g/dL (12.0-15.5)
[2021-07-14 16:16] LABS: ALBUMIN 2.5 g/dL (3.4-5.0); ALBUMIN/GLOBULIN RATIO 0.8 (1.0-1.7); CALCIUM 7.8 mg/dL (8.5-10.1); CREATININE 1.3 mg/dL (0.6-1.0); GFR 39.6; POTASSIUM 3.2 mmol/L (3.5-5.1); TOTAL BILIRUBIN 2.5 mg/dL (0.2-1.0); TOTAL PROTEIN 5.7 g/dL (6.4-8.2)
[2021-07-14 16:46] LABS: HYALINE CASTS, URINE FEW /HPF
[2021-07-14 16:47] LABS: BACTERIA,URINE 0 /HPF (0-FEW); RBC,URINE 0 /HPF (0-2); WBC,URINE 0 /HPF (0-4)
[2021-07-14] MEDS: oxyCODONE/APAP 5/325 1 TAB TABLET PO PRN (17:07)
--- NOTE | 2021-07-14 17:57 | RAD ---
AP chest. HISTORY: Confusion AP view of the chest was compared with a study from July 03. Heart is normal in size. Right Port-A-Ca th is unchanged. There is slight hazy atelectasis or infiltrate in the right lung base. No other infi ltrates are noted. Heart is normal in size. There is no effusion. IMPRESSION: 1. Slight hazy atelectasis or infiltrate right lung base. Electronically signed by: Marshall Daly MD (07/14/2021 5:55 PM) [facility]
[2021-07-14] MEDS: OXYBUTYNIN CHLORIDE 5 MG TABLET PO SCH (21:59)
[2021-07-14] MEDS: GABAPENTIN 300 MG CAPSULE. PO SCH (21:59)
[2021-07-14 23:10] LABS: HEMATOCRIT 27.2 % (36.0-47.0)
[2021-07-15] MEDS ORDERED: ZIPRASIDONE IM 20 MG VIAL. IM ONE (00:45)
--- NOTE | 2021-07-15 01:40 | NUR ---
Patient has been agitated all evening. Addendum: 07/15/21 at 0144 by STEPHANIE MOE RN RN Patient pulled out IV at start of shift while PRBC infusing. Patient only oriented to self and becomes aggressive at times. Patient continuously trying to get out of bed. New IV was placed and mitts placed on patient. Patient got mitts off multiple times and got 2nd IV out. I attempted to place another IV and was unsuccessful. NONI Bailey, came and placed new IV, blood administration was done when she pulled out 2nd IV. No current drips running. IV has stayed in place but patient continued to try to get up and would get agitated with staff. Unable to orient patient and patient unable to comprehend education about safety. Bed alarm remains on in patient's room. Dr. Jaramillo notified of agitation, order received for 10 mg Geodon IM PRN Q6H for agitation. Patient given Geodon, no more attempts to climb out of bed yet. Patient asleep in room at this time.
[2021-07-15 03:18] VITALS: BP 141/51
[2021-07-15 07:00] VITALS: BP 144/54
--- NOTE | 2021-07-15 08:11 | RAD ---
INDICATION: Reason: Confusion, recent fall / Spl. Instructions: / History: COMPARISON: None. TECHNIQUE: Axial CT images obtained through the head without intravenous contrast. One or more of the following individualized dose reduction techniques were utilized for this examinat ion: 1. Automated exposure control; 2. Adjustment of the mA and/or kV according to patient size; 3 . Use of iterative reconstruction technique. FINDINGS: No intracranial hemorrhage. No significant midline shift. Ventricles and sulci are globally prominent. Scattered foci of low attenuation within the white matter. IMPRESSION: * No acute intracranial hemorrhage. * Scattered regions of low attenuation within the white matter. Non-specific in nature but a common finding and frequently secondary to small vessel ischemic disease. Electronically signed by: Guanakito Mendez MD (07/15/2021 8:09 AM) [id number]
[2021-07-15] MEDS: ATORVASTATIN CALCIUM 20 MG TABLET PO SCH (08:19)
[2021-07-15] MEDS: OXYBUTYNIN CHLORIDE 5 MG TABLET PO SCH ×2 (08:19→21:22)
[2021-07-15] MEDS: GABAPENTIN 300 MG CAPSULE. PO SCH ×2 (08:19→21:22)
[2021-07-15] MEDS: CLOPIDOGREL BISULFATE 75 MG TABLET PO SCH (08:19)
[2021-07-15] MEDS: LISINOPRIL 20 MG TABLET PO SCH (08:20)
--- NOTE | 2021-07-15 08:29 | PDOC ---
[employer] PROGRESS NOTE Date of Service DOS: DATE: 07/15/21 TIME: 08:16 Chief Complaint Chief Complaint Acute anemia - s/p 1u PRBC Acute encephalopathy - metabolic Upper extremity swelling - will order dopplers Dementia - previously with Mild cognitive impairment HTN, HLD, DM2, endometrial and breast cancer s/p bilateral mastectomy and TAHBSO, PVD History of Present Illness History of Present Illness Ms Landis is a 76-year-old female with past medical history HTN, HLD, DM2, dementia, endometrial and breast cancer s/p bilateral mastectomy and TAHBSO, PVD who presents from [facility] rehab due to anemia. She was recently discharged from [facility] after recent femur fracture with ORIF on 07/04/2021. Labs on discharge showed hemoglobin of 8.4, hematocrit 25.2, and hemoglobin A1c 6.5. 07/14/21 at [facility] she reportedly had a hemoglobin of 6.3. Nursing staff at [facility] report ongoing confusion and a nontraumatic fall. Somewhat confused and generally edematous. Patient been admitted for further medical management. 07/14: Hb 9 status post 1 unit PRBC transfusion. Right arm swelling and redness. Neytul-hm-iwu was complaining of bilateral upper extremity swelling and redness and a couple falls SNF prior to coming over. Patient very agitated overnight required intramuscular Geodon. Discussed with yoxalg-tl-wqf at bedside. Discussed with nursing bedside left heel ulcer noted dressed and due to multiple IVs should be accessing her Port-A-Cath. Still has not had a bowel movement will need to repeat hemogram prior to discharge and hopefully mental status clears. Vitals/I&O Vitals/I&O: Vital Signs Date Time Temp Pulse Resp B/P (MAP) Pulse Ox O2 Delivery O2 Flow Rate FiO2 07/15/21 07:00 97.6 80 18 144/54 (84) 97 97.6 07/15/21 03:18 Room Air I & O 07/14/21 07/14/21 07/15/21 15:00 23:00 07:00 Intake Total 630 ml Balance 630 ml Physical Exam Lungs: Clear Labs Labs: Laboratory Tests Test 07/14/21 15:20 07/14/21 15:50 07/14/21 22:45 White Blood Count 5.6 x10^3/uL (4.0-11.0) Red Blood Count 2.09 x10^6/uL (3.50-5.40) Hemoglobin 6.4 g/dL (12.0-15.5) 9.0 g/dL (12.0-15.5) Hematocrit 19.5 % (36.0-47.0) 27.2 % (36.0-47.0) Mean Corpuscular Volume 93 fL (79-100) Mean Corpuscular Hemoglobin 31 pg (25-35) Mean Corpuscular Hemoglobin Concent 33 g/dL (31-37) 33 g/dL (31-37) Red Cell Distribution Width 15.3 % (11.5-14.5) Platelet Count 364 x10^3/uL (140-400) Neutrophils (%) (Auto) 72 % (31-73) Lymphocytes (%) (Auto) 17 % (24-48) Monocytes (%) (Auto) 9 % (0-9) Eosinophils (%) (Auto) 1 % (0-3) Basophils (%) (Auto) 1 % (0-3) Neutrophils # (Auto) 4.0 x10^3/uL (1.8-7.7) Lymphocytes # (Auto) 1.0 x10^3/uL (1.0-4.8) Monocytes # (Auto) 0.5 x10^3/uL (0.0-1.1) Eosinophils # (Auto) 0.1 x10^3/uL (0.0-0.7) Basophils # (Auto) 0.0 x10^3/uL (0.0-0.2) Sodium Level 140 mmol/L (136-145) Potassium Level 3.2 mmol/L (3.5-5.1) Chloride Level 105 mmol/L (98-107) Carbon Dioxide Level 24 mmol/L (21-32) Anion Gap 11 (6-14) Blood Urea Nitrogen 29 mg/dL (7-20) Creatinine 1.3 mg/dL (0.6-1.0) Estimated GFR (Cockcroft-Gault) 39.6 BUN/Creatinine Ratio 22 (6-20) Glucose Level 104 mg/dL (70-99) Calcium Level 7.8 mg/dL (8.5-10.1) Total Bilirubin 2.5 mg/dL (0.2-1.0) Aspartate Amino Transf (AST/SGOT) 15 U/L (15-37) Alanine Aminotransferase (ALT/SGPT) 16 U/L (14-59) Alkaline Phosphatase 133 U/L (46-116) Total Protein 5.7 g/dL (6.4-8.2) Albumin 2.5 g/dL (3.4-5.0) Albumin/Globulin Ratio 0.8 (1.0-1.7) Urine Collection Type Unknown Urine Color (Auto) Light yellow Urine Turbidity Clear Urine pH (Auto) 5.0 (<5.0-8.0) Urine Specific [place] 1.010 (1.000-1.030) Urine Protein (Auto) Negative mg/dL (Negative) Urine Glucose (Auto)(UA) Negative mg/dL (Negative) Urine Ketones (Auto) Negative mg/dL (Negative) Urine Blood (Auto) Negative (Negative) Urine Nitrite Negative (Negative) Urine Bilirubin (Auto) Negative (Negative) Urine Urobilinogen (Auto) Normal mg/dL (Normal) Urine Leukocyte Esterase (Auto) Negative (Negative) Urine RBC 0 /HPF (0-2) Urine WBC 0 /HPF (0-4) Urine Squamous Epithelial Cells Few /LPF Urine Bacteria 0 /HPF (0-FEW) Urine Hyaline Casts Few /HPF Urine Mucus Slight /LPF Comment Review of Relevant I have reviewed the following items lopez (where applicable) has been applied. Medications: Current Medications Medications (Trade) Dose Ordered Sig/Patti Route PRN Reason Start Time Stop Time Status Last Admin Dose Admin Furosemide (Lasix) 20 mg 1X ONCE IVP 07/14/21 15:45 07/14/21 15:46 DC 07/14/21 17:07 Oxybutynin Chloride (Ditropan) 5 mg BID PO 07/14/21 21:00 07/14/21 21:59 Oxycodone/ Acetaminophen (Percocet 5/325) 1 tab PRN Q4HRS PRN PO MODERATE TO SEVERE PAIN 07/14/21 15:45 07/14/21 17:07 Gabapentin (Neurontin) 300 mg BID PO 07/14/21 21:00 07/14/21 21:59 Ziprasidone (Geodon Im) 10 mg PRN Q6HRS ONCE IM 07/15/21 00:45 07/15/21 00:46 DC 07/15/21 00:55 Justifications for Admission Other Justification STEFFANIE REY MD Jul 15, 2021 08:29
[2021-07-15 08:39] LABS: BASO % 1 % (0-3); EOS # 0.1 x10^3/uL (0.0-0.7); EOS % 2 % (0-3); HEMOGLOBIN 8.7 g/dL (12.0-15.5); LYMPH # 0.9 x10^3/uL (1.0-4.8); LYMPH % 14 % (24-48); MEAN CORPUSCULAR HEMOGLOBIN 31 pg (25-35); MEAN CORPUSCULAR HGB CONC 33 g/dL (31-37); MEAN CORPUSCULAR VOLUME 92 fL (79-100); MONO # 0.4 x10^3/uL (0.0-1.1); MONO % 7 % (0-9); NEUT # 4.6 x10^3/uL (1.8-7.7); NEUT % 76 % (31-73); PLATELET COUNT 376 x10^3/uL (140-400); RED BLOOD COUNT 2.82 x10^6/uL (3.50-5.40); RED CELL DISTRIBUTION WIDTH 15.5 % (11.5-14.5); WHITE BLOOD COUNT 6.1 x10^3/uL (4.0-11.0)
[2021-07-15 09:05] LABS: CALCIUM 8.2 mg/dL (8.5-10.1); CREATININE 1.1 mg/dL (0.6-1.0)
[2021-07-15 09:11] LABS: POTASSIUM 2.9 mmol/L (3.5-5.1)
[2021-07-15] MEDS ORDERED: POTASSIUM CHLORIDE 20 MEQ TABLET.ER. PO ONE ×2 (09:30→13:00)
[2021-07-15] MEDS ORDERED: POTASSIUM CHLORIDE 10MEQ 100 ML IV ONE (09:30)
[2021-07-15 11:00] VITALS: BP 138/48
--- NOTE | 2021-07-15 13:18 | CARD ---
MR#: [id number] Date of Study: 07/15/2021 Ordering Physician: ISRA GALEANA, Referring Physician: ISRA GALEANA Tech: Edward Marlow [facility] APPROVED REPORT EXAM: Two-dimensional and M-mode echocardiogram with Doppler and color Doppler. Other Information Quality : AverageHR: 58bpm Rhythm : NSR INDICATION Edema, Altered mental status RISK FACTORS Hypertension Hyperlipidemia Diabetes Peripheral arterial disease 2D DIMENSIONS Left Atrium(2D)3.1 (1.6-4.0cm)IVSd0.8 (0.7-1.1cm) Aortic Root(2D)2.8 (2.0-3.7cm)LVDd4.1 (3.9-5.9cm) LVOT Diameter1.8 (1.8-2.4cm)PWd0.8 (0.7-1.1cm) LA Akglac05 (18-58mL)LVDs2.7 (2.5-4.0cm) FS (%) 35.4 %SV48.8 ml LVEF(%)65.3 (>50%) Aortic Valve AoV Peak Jer.143.0cm/sAoV VTI32.1cm AO Peak GR.8.2mmHgLVOT Peak Jer.107.3cm/s LVOT VTI 27.05cmAO Mean GR.4mmHg TIA (VMAX)1.16oh3GQE (VTI)2.22cm2 Mitral Valve MV E Brocwyun366.5cm/sMV DECEL [id number] MV A Pvjiixem30.8cm/sMV IDO42gt E/A Ratio1.2MVA (PHT)4.16cm2 TDI E/Lateral E'13.6E/Medial E'15.1 Pulmonary Valve PV Peak Jilohbhe22.0cm/sPV Peak Grad.3mmHg Tricuspid Valve TR P. Dipptrtp518pc/sTR Peak Gr.24mmHg Pulmonary Vein S1 Hctsdsjn53.4cm/sD2 Palohppa49.0cm/s LEFT VENTRICLE The left ventricle is normal size. There is normal left ventricular wall thickness. The left ventricu lar systolic function is normal and the ejection fraction is within normal range. EF 55% There is nor mal LV segmental wall motion. Tissue Doppler imaging reveals mild left ventricular diastolic dysfunct ion. No left ventricle thrombus noted on this study. There is no ventricular septal defect visualized . There is no left ventricular aneurysm. There is no mass noted in the left ventricle. RIGHT VENTRICLE The right ventricle is normal size. There is normal right ventricular wall thickness. The right ventr icular systolic function is normal. ATRIA The left atrium size is normal. The right atrium size is normal. The interatrial septum is intact wit h no evidence for an atrial septal defect or patent foramen ovale as noted on 2-D or Doppler imaging. AORTIC VALVE The aortic valve is normal in structure and function. Doppler and Color Flow revealed no significant aortic regurgitation. There is no significant aortic valvular stenosis. There is no aortic valvular v egetation. MITRAL VALVE The mitral valve is normal in structure and function. There is no evidence of mitral valve prolapse. There is no mitral valve stenosis. Doppler and Color-flow revealed trace mitral regurgitation. TRICUSPID VALVE The tricuspid valve is normal in structure and function. Doppler and Color Flow revealed trace tricus pid regurgitation. There is no tricuspid valve prolapse or vegetation. There is no tricuspid valve st enosis. PULMONIC VALVE Doppler and Color Flow revealed no pulmonic valvular regurgitation. There is no pulmonic valvular felipa nosis. GREAT VESSELS The aortic root is normal in size. The ascending aorta is normal in size. The IVC is normal in size a nd collapses >50% with inspiration. PERICARDIAL EFFUSION There is no pleural effusion. There is no evidence of significant pericardial effusion. Critical Notification Critical Value: No <Conclusion> The left ventricular systolic function is normal and the ejection fraction is within normal range. EF 55% There is normal LV segmental wall motion. Signed by : Anmol Clemons, Electronically Approved : 07/15/2021 13:18:00
--- NOTE | 2021-07-15 14:19 | NUR ---
SS following for discharge planning. SS reviewed pt chart and discussed with pt RN. Pt is resident from [facility], ; fax [phone]. Pt is currently on room air. Pt admitted for anemia. Blood received last night. Pt's sister in law, Мария, , requesting to speak with SS. SS left voicemail for Мария as she was not in room. PT/OT ordered. COVID19 test requested for placement. SS will continue to follow for discharge planning.
[2021-07-15 15:00] VITALS: BP 149/108
--- NOTE | 2021-07-15 16:18 | NUR ---
Wound/Ostomy Care Wound Type/Assessment: Patient seen per wound care consult. See wound assessment. Patient has skin tears to left arm related to a fall as well has a DFU to the left heel. Patient assisted off the commode and back to bed, brief left off as patient is able to use the commode. Patient stated she did not known what the heel wound was from. It appears that due to the trauma in her left and requiring surgery she has been resting this heel on the bed and rail and applying to much pressure to this particular area. there is no depth to this wound but is it darkened purple which implies a deep tissue injury but patient his diabetic. Wound cleansed, assessed, measured, and pictured. The skin tears also cleansed, and these wounds are draining due to fluid retention, and swelling in this arm, patient is receiving lasix and RN stated swelling has improved from yesterday. Treatment Recommendations/Plan: Cleanse wounds and pat dry. Recommendations for xeroform gauze, ABD pad, and kerlix to help manage drainage rather than using foam dressings the left upper arm skin tears. Recommendations for skin prep and foam dressing to the left heel as well as wearing heel medix while in bed and floating the heel at all times Dressings applied. No other wounds noted upon complete head to toe assessment. Change dressings on Monday and Monday. Education provided: Patient educated on wound care and PU treatment and management. Patient is confused at times but remains pleasant. Offloading surface/device: A heel medix boot ordered for this patient. Recommended Referrals/Tests: N/A Discharge Recommendations for dressings: Dressing change instructions left in room. Bed lowered and call light in reach and alarm in place. Sister in law of patient is now at bedside. Wound care will follow up on 07/22/21.
[2021-07-15 19:00] VITALS: BP 93/54
[2021-07-15] MEDS: oxyCODONE/APAP 5/325 1 TAB TABLET PO PRN (21:24)
[2021-07-15 23:00] VITALS: BP 176/67
[2021-07-16] MEDS: ZIPRASIDONE IM 20 MG VIAL. IM PRN ×2 (00:13→20:29)
[2021-07-16 07:00] VITALS: BP 159/60
--- NOTE | 2021-07-16 07:44 | PDOC ---
[employer] PROGRESS NOTE Date of Service DOS: DATE: 07/16/21 TIME: 07:43 Chief Complaint Chief Complaint Acute anemia - s/p 1u PRBC Acute encephalopathy - metabolic Upper extremity swelling - will order dopplers Dementia - previously with Mild cognitive impairment HTN, HLD, DM2, endometrial and breast cancer s/p bilateral mastectomy and TAHBSO, PVD History of Present Illness History of Present Illness Ms Landis is a 76-year-old female with past medical history HTN, HLD, DM2, dementia, endometrial and breast cancer s/p bilateral mastectomy and TAHBSO, PVD who presents from [facility] rehab due to anemia. She was recently discharged from [facility] after recent femur fracture with ORIF on 07/04/2021. Labs on discharge showed hemoglobin of 8.4, hematocrit 25.2, and hemoglobin A1c 6.5. 07/14/21 at [facility] she reportedly had a hemoglobin of 6.3. Nursing staff at [facility] report ongoing confusion and a nontraumatic fall. Somewhat confused and generally edematous. Patient been admitted for further medical management. 07/15: Hb 9 status post 1 unit PRBC transfusion. Right arm swelling and redness. Lqzwvt-ld-uni was complaining of bilateral upper extremity swelling and redness and a couple falls SNF prior to coming over. Patient very agitated overnight required intramuscular Geodon. Discussed with iqoivu-vg-dej at bedside. Discussed with nursing bedside left heel ulcer noted dressed and due to multiple IVs should be accessing her Port-A-Cath. Still has not had a bowel movement will need to repeat hemogram prior to discharge and hopefully mental status clears. 07/16: Potassium 2.9 and CR 1.1, Hb 9. Still confused per yjiqlf-bo-dda. She thinks she worked with therapy. Pending repeat Covid PCR prior to hopeful discharge in the next 72 hours back to intermediate Vitals/I&O Vitals/I&O: Vital Signs Date Time Temp Pulse Resp B/P (MAP) Pulse Ox O2 Delivery O2 Flow Rate FiO2 07/15/21 23:00 97.6 91 20 176/67 (103) 97 Room Air 97.6 I & O 07/15/21 07/15/21 07/16/21 15:00 23:00 07:00 Intake Total 460 ml 0 ml Balance 460 ml 0 ml Physical Exam General: Alert, Cooperative Lungs: Clear Labs Labs: Laboratory Tests Test 07/15/21 08:00 07/15/21 21:31 White Blood Count 6.1 x10^3/uL (4.0-11.0) Red Blood Count 2.82 x10^6/uL (3.50-5.40) Hemoglobin 8.7 g/dL (12.0-15.5) Hematocrit 26.0 % (36.0-47.0) Mean Corpuscular Volume 92 fL (79-100) Mean Corpuscular Hemoglobin 31 pg (25-35) Mean Corpuscular Hemoglobin Concent 33 g/dL (31-37) Red Cell Distribution Width 15.5 % (11.5-14.5) Platelet Count 376 x10^3/uL (140-400) Neutrophils (%) (Auto) 76 % (31-73) Lymphocytes (%) (Auto) 14 % (24-48) Monocytes (%) (Auto) 7 % (0-9) Eosinophils (%) (Auto) 2 % (0-3) Basophils (%) (Auto) 1 % (0-3) Neutrophils # (Auto) 4.6 x10^3/uL (1.8-7.7) Lymphocytes # (Auto) 0.9 x10^3/uL (1.0-4.8) Monocytes # (Auto) 0.4 x10^3/uL (0.0-1.1) Eosinophils # (Auto) 0.1 x10^3/uL (0.0-0.7) Basophils # (Auto) 0.0 x10^3/uL (0.0-0.2) Sodium Level 145 mmol/L (136-145) Potassium Level 2.9 mmol/L (3.5-5.1) Chloride Level 108 mmol/L (98-107) Carbon Dioxide Level 26 mmol/L (21-32) Anion Gap 11 (6-14) Blood Urea Nitrogen 23 mg/dL (7-20) Creatinine 1.1 mg/dL (0.6-1.0) Estimated GFR (Cockcroft-Gault) 48.0 Glucose Level 87 mg/dL (70-99) Calcium Level 8.2 mg/dL (8.5-10.1) Glucose (Fingerstick) 82 mg/dL (70-99) Comment Review of Relevant I have reviewed the following items lopez (where applicable) has been applied. Medications: Current Medications Medications (Trade) Dose Ordered Sig/Patti Route PRN Reason Start Time Stop Time Status Last Admin Dose Admin Atorvastatin Calcium (Lipitor) 20 mg DAILY PO 07/15/21 09:00 07/15/21 08:19 Clopidogrel Bisulfate (Plavix) 75 mg DAILY PO 07/15/21 09:00 07/15/21 08:19 Amlodipine Besylate (Norvasc) 5 mg DAILY PO 07/15/21 09:00 07/15/21 08:19 Lisinopril (Prinivil) 40 mg DAILY PO 07/15/21 09:00 07/15/21 08:20 Potassium Chloride/Water 100 ml @ 100 mls/hr 1X ONCE IV 07/15/21 09:30 07/15/21 10:29 DC 07/15/21 11:03 Potassium Chloride (Klor-Con) 40 meq 1X ONCE PO 07/15/21 09:30 07/15/21 09:36 DC 07/15/21 09:58 Potassium Chloride (Klor-Con) 40 meq 1X ONCE PO 07/15/21 13:00 07/15/21 13:01 DC 07/15/21 13:27 Olanzapine (ZyPREXA ZYDIS) 5 mg PRN BID PRN PO ANXIETY / AGITATION 07/15/21 15:00 07/15/21 21:22 Ziprasidone (Geodon Im) 10 mg PRN Q6HRS PRN IM AGITATION 07/15/21 23:45 07/16/21 00:13 Justifications for Admission Other Justification STEFFANIE REY MD Jul 16, 2021 07:44
[2021-07-16 09:45] LABS: HEMATOCRIT 27.4 % (36.0-47.0); RED BLOOD COUNT 2.94 x10^6/uL (3.50-5.40); RED CELL DISTRIBUTION WIDTH 15.8 % (11.5-14.5); WHITE BLOOD COUNT 6.5 x10^3/uL (4.0-11.0)
[2021-07-16 10:06] LABS: ALBUMIN 2.7 g/dL (3.4-5.0); ALBUMIN/GLOBULIN RATIO 0.8 (1.0-1.7); CALCIUM 8.5 mg/dL (8.5-10.1); GFR 53.6; POTASSIUM 4.4 mmol/L (3.5-5.1); TOTAL BILIRUBIN 2.2 mg/dL (0.2-1.0)
--- NOTE | 2021-07-16 10:08 | RAD ---
INDICATION: Reason: Swelling, concern for DVT, thrombophlebitis / Spl. Instructions: / History: COMPARISON: None. TECHNIQUE: Grayscale, color and doppler ultrasound images were obtained of the bilateral upper extrem ity venous vasculature. No thrombus identified in the internal jugular, subclavian, axillary, brachial, basilic, cephalic, ra dial or ulnar veins. IMPRESSION: * No thrombus identified in deep venous system of bilateral upper extremity. * Edema in the soft tissues. Electronically signed by: Guanakito Mendez MD (07/16/2021 10:06 AM) [id number]
[2021-07-16 11:00] VITALS: BP 165/50
[2021-07-16] MEDS: CLOPIDOGREL BISULFATE 75 MG TABLET PO SCH (11:46)
[2021-07-16] MEDS: OXYBUTYNIN CHLORIDE 5 MG TABLET PO SCH ×2 (11:47→20:29)
[2021-07-16] MEDS: LISINOPRIL 20 MG TABLET PO SCH (11:47)
[2021-07-16] MEDS: GABAPENTIN 300 MG CAPSULE. PO SCH ×2 (11:47→20:28)
[2021-07-16] MEDS: ATORVASTATIN CALCIUM 20 MG TABLET PO SCH (11:47)
--- NOTE | 2021-07-16 11:48 | NUR ---
SS following up with discharge planning. SS reviewed pt chart and discussed with pt RN. Pt is currently on room air. Pt is resident from [facility], ; fax [phone]. Hemoglobin stable today. Pt confused. PT/OT recommended alf unit. [facility] reported that they will accept pt back when medically ready for discharge. Facility will require COVID19 PCR when medically ready for discharge. SS will continue to follow for discharge planning.
[2021-07-16 15:00] VITALS: BP 153/49
[2021-07-16] MEDS: oxyCODONE/APAP 5/325 1 TAB TABLET PO PRN (16:51)
[2021-07-16 19:00] VITALS: BP 151/41
[2021-07-17 03:00] VITALS: BP 156/60
[2021-07-17] MEDS: ZIPRASIDONE IM 20 MG VIAL. IM PRN (03:52)
[2021-07-17 07:00] VITALS: BP 140/50
[2021-07-17 11:00] VITALS: BP 153/53
--- NOTE | 2021-07-17 13:49 | PDOC ---
[employer] PROGRESS NOTE Date of Service DOS: DATE: 07/17/21 TIME: 13:34 Chief Complaint Chief Complaint Acute anemia - s/p 1u PRBC Acute encephalopathy - metabolic Upper extremity swelling - negative venous dopplers Dementia - previously with Mild cognitive impairment HTN, HLD, DM2, endometrial and breast cancer s/p bilateral mastectomy and TAHBSO, PVD History of Present Illness History of Present Illness Ms Landis is a 76-year-old female with past medical history HTN, HLD, DM2, dementia, endometrial and breast cancer s/p bilateral mastectomy and TAHBSO, PVD who presents from [facility] rehab due to anemia. She was recently discharged from [facility] after recent femur fracture with ORIF on 07/04/2021. Labs on discharge showed hemoglobin of 8.4, hematocrit 25.2, and hemoglobin A1c 6.5. 07/14/21 at [facility] she reportedly had a hemoglobin of 6.3. Nursing staff at [facility] report ongoing confusion and a nontraumatic fall. Somewhat confused and generally edematous. Patient been admitted for further medical management. 07/15: Hb 9 status post 1 unit PRBC transfusion. Right arm swelling and redness. Ithybs-yh-vbn was complaining of bilateral upper extremity swelling and redness and a couple falls SNF prior to coming over. Patient very agitated overnight required intramuscular Geodon. Discussed with sxyrkg-hm-yvo at bedside. Discussed with nursing bedside left heel ulcer noted dressed and due to multiple IVs should be accessing her Port-A-Cath. Still has not had a bowel movement will need to repeat hemogram prior to discharge and hopefully mental status clears. 07/16: Potassium 2.9 and CR 1.1, Hb 9. Still confused per hkfdyq-hv-iel. She thinks she worked with therapy. Pending repeat Covid PCR prior to hopeful discharge in the next 72 hours back to nursing home 07/17: owning with confusion not responsive to redirection required low-dose antipsychotic overnight. Still disoriented today and inappropriately answering questions has been hallucinating seeing animals. No pain complaints. Vitals/I&O Vitals/I&O: Vital Signs Date Time Temp Pulse Resp B/P (MAP) Pulse Ox O2 Delivery O2 Flow Rate FiO2 07/17/21 11:00 98.2 66 16 153/53 (86) 96 Room Air 98.2 I & O 07/16/21 07/16/21 07/17/21 15:00 23:00 07:00 Intake Total 480 ml 240 ml 50 ml Balance 480 ml 240 ml 50 ml Physical Exam General: Alert, Cooperative Lungs: Clear Labs Labs: Laboratory Tests Test 07/16/21 16:46 07/16/21 21:03 07/17/21 07:40 07/17/21 12:14 Glucose (Fingerstick) 101 mg/dL (70-99) 151 mg/dL (70-99) 112 mg/dL (70-99) 87 mg/dL (70-99) Comment Review of Relevant I have reviewed the following items lopez (where applicable) has been applied. Justifications for Admission Other Justification STEFFANIE REY MD Jul 17, 2021 13:49
[2021-07-17 15:00] VITALS: BP 148/52
[2021-07-17] MEDS: OXYBUTYNIN CHLORIDE 5 MG TABLET PO SCH ×2 (15:09→22:37)
[2021-07-17] MEDS: CLOPIDOGREL BISULFATE 75 MG TABLET PO SCH (15:09)
[2021-07-17] MEDS: ATORVASTATIN CALCIUM 20 MG TABLET PO SCH (15:09)
[2021-07-17] MEDS: GABAPENTIN 300 MG CAPSULE. PO SCH ×2 (15:09→22:37)
[2021-07-17] MEDS: LISINOPRIL 20 MG TABLET PO SCH (15:12)
[2021-07-17 19:47] VITALS: BP 157/56
[2021-07-17 23:23] VITALS: BP 143/52
[2021-07-18] MEDS: ZIPRASIDONE IM 20 MG VIAL. IM PRN (00:37)
[2021-07-18 07:00] VITALS: BP 146/49
[2021-07-18 07:32] LABS: HEMATOCRIT 29.5 % (36.0-47.0); RED BLOOD COUNT 3.18 x10^6/uL (3.50-5.40); RED CELL DISTRIBUTION WIDTH 16.4 % (11.5-14.5); WHITE BLOOD COUNT 6.4 x10^3/uL (4.0-11.0)
[2021-07-18 07:57] LABS: ALBUMIN 2.6 g/dL (3.4-5.0); ALBUMIN/GLOBULIN RATIO 0.7 (1.0-1.7); CALCIUM 8.5 mg/dL (8.5-10.1); GFR 53.6; POTASSIUM 3.8 mmol/L (3.5-5.1); TOTAL PROTEIN 6.2 g/dL (6.4-8.2)
[2021-07-18] MEDS: GABAPENTIN 300 MG CAPSULE. PO SCH ×2 (09:54→21:27)
[2021-07-18] MEDS: LISINOPRIL 20 MG TABLET PO SCH (09:54)
[2021-07-18] MEDS: ATORVASTATIN CALCIUM 20 MG TABLET PO SCH (09:55)
[2021-07-18] MEDS: CLOPIDOGREL BISULFATE 75 MG TABLET PO SCH (09:55)
[2021-07-18] MEDS: OXYBUTYNIN CHLORIDE 5 MG TABLET PO SCH (09:55)
[2021-07-18 11:00] VITALS: BP 111/59
--- NOTE | 2021-07-18 12:25 | PDOC ---
[employer] PROGRESS NOTE Date of Service DOS: DATE: 07/18/21 TIME: 12:24 Chief Complaint Chief Complaint Acute anemia - s/p 1u PRBC Acute encephalopathy - metabolic Upper extremity swelling - negative venous dopplers Dementia - previously with Mild cognitive impairment HTN, HLD, DM2, endometrial and breast cancer s/p bilateral mastectomy and TAHBSO, PVD History of Present Illness History of Present Illness Ms Landis is a 76-year-old female with past medical history HTN, HLD, DM2, dementia, endometrial and breast cancer s/p bilateral mastectomy and TAHBSO, PVD who presents from [facility] rehab due to anemia. She was recently discharged from [facility] after recent femur fracture with ORIF on 07/04/2021. Labs on discharge showed hemoglobin of 8.4, hematocrit 25.2, and hemoglobin A1c 6.5. 07/14/21 at [facility] she reportedly had a hemoglobin of 6.3. Nursing staff at [facility] report ongoing confusion and a nontraumatic fall. Somewhat confused and generally edematous. Patient been admitted for further medical management. 07/15: Hb 9 status post 1 unit PRBC transfusion. Right arm swelling and redness. Itlfhs-gz-zqf was complaining of bilateral upper extremity swelling and redness and a couple falls SNF prior to coming over. Patient very agitated overnight required intramuscular Geodon. Discussed with jbmgsc-tr-man at bedside. Discussed with nursing bedside left heel ulcer noted dressed and due to multiple IVs should be accessing her Port-A-Cath. Still has not had a bowel movement will need to repeat hemogram prior to discharge and hopefully mental status clears. 07/16: Potassium 2.9 and CR 1.1, Hb 9. Still confused per ijirqz-dy-fdq. She thinks she worked with therapy. Pending repeat Covid PCR prior to hopeful discharge in the next 72 hours back to long-term 07/17: owning with confusion not responsive to redirection required low-dose antipsychotic overnight. Still disoriented today and inappropriately answering questions has been hallucinating seeing animals. No pain complaints. 07/18: Still very confused confabulating. Interestingly she is aware the year is 2021 but also answers this for the month and the season and the day of the week. Answers many questions inappropriately. Still hallucinating. Will hold her Ditropan. Of note she is still not had a bowel movement will start bowel regimen today. If her neurologic status does not improve after holding Ditropan and bowel regimen may need to consider neurological consultation. Vitals/I&O Vitals/I&O: Vital Signs Date Time Temp Pulse Resp B/P (MAP) Pulse Ox O2 Delivery O2 Flow Rate FiO2 07/18/21 09:55 69 143/52 07/18/21 07:00 98.8 16 98 Room Air 98.8 I & O 07/17/21 07/17/21 07/18/21 15:00 23:00 07:00 Intake Total 200 ml 200 ml 100 ml Balance 200 ml 200 ml 100 ml Physical Exam General: Alert, Cooperative Lungs: Clear Labs Labs: Laboratory Tests Test 07/17/21 17:05 07/17/21 20:40 07/18/21 06:15 07/18/21 07:23 Glucose (Fingerstick) 114 mg/dL (70-99) 125 mg/dL (70-99) 84 mg/dL (70-99) White Blood Count 6.4 x10^3/uL (4.0-11.0) Red Blood Count 3.18 x10^6/uL (3.50-5.40) Hemoglobin 10.0 g/dL (12.0-15.5) Hematocrit 29.5 % (36.0-47.0) Mean Corpuscular Volume 93 fL (79-100) Mean Corpuscular Hemoglobin 31 pg (25-35) Mean Corpuscular Hemoglobin Concent 34 g/dL (31-37) Red Cell Distribution Width 16.4 % (11.5-14.5) Platelet Count 426 x10^3/uL (140-400) Sodium Level 146 mmol/L (136-145) Potassium Level 3.8 mmol/L (3.5-5.1) Chloride Level 108 mmol/L (98-107) Carbon Dioxide Level 29 mmol/L (21-32) Anion Gap 9 (6-14) Blood Urea Nitrogen 12 mg/dL (7-20) Creatinine 1.0 mg/dL (0.6-1.0) Estimated GFR (Cockcroft-Gault) 53.6 BUN/Creatinine Ratio 12 (6-20) Glucose Level 92 mg/dL (70-99) Calcium Level 8.5 mg/dL (8.5-10.1) Total Bilirubin 2.0 mg/dL (0.2-1.0) Aspartate Amino Transf (AST/SGOT) 15 U/L (15-37) Alanine Aminotransferase (ALT/SGPT) 15 U/L (14-59) Alkaline Phosphatase 218 U/L (46-116) Total Protein 6.2 g/dL (6.4-8.2) Albumin 2.6 g/dL (3.4-5.0) Albumin/Globulin Ratio 0.7 (1.0-1.7) Comment Review of Relevant I have reviewed the following items lopez (where applicable) has been applied. Justifications for Admission Other Justification STEFFANIE REY MD Jul 18, 2021 12:25
[2021-07-18] MEDS: SENNOSIDES/DOCUSATE 8.6/50MG TABLET. PO SCH ×2 (13:18→21:27)
[2021-07-18] MEDS: POLYETHYLENE GLYCOL 3350 17 GM PACKET. PO SCH (13:18)
[2021-07-18 19:52] VITALS: BP_SYST 149; BP_SYST 201; BP_DIAS 52; BP_DIAS 92
[2021-07-18] MEDS: PSYLLIUM HUSK (SUGAR FREE) 1 PKT PACKET PO SCH (21:27)
[2021-07-18] MEDS: ZOLPIDEM 5 MG TABLET. PO PRN (21:27)
[2021-07-18 23:07] VITALS: BP 140/50
[2021-07-19 07:00] VITALS: BP 148/74
[2021-07-19] MEDS: SENNOSIDES/DOCUSATE 8.6/50MG TABLET. PO SCH ×2 (09:53→19:50)
[2021-07-19] MEDS: LISINOPRIL 20 MG TABLET PO SCH (09:53)
[2021-07-19] MEDS: ATORVASTATIN CALCIUM 20 MG TABLET PO SCH (09:53)
[2021-07-19] MEDS: POLYETHYLENE GLYCOL 3350 17 GM PACKET. PO SCH (09:53)
[2021-07-19] MEDS: CLOPIDOGREL BISULFATE 75 MG TABLET PO SCH (09:53)
[2021-07-19] MEDS: GABAPENTIN 300 MG CAPSULE. PO SCH ×2 (09:59→19:49)
[2021-07-19 11:00] VITALS: BP 134/49
--- NOTE | 2021-07-19 11:49 | PDOC ---
[employer] PROGRESS NOTE Date of Service DOS: DATE: 07/19/21 TIME: 11:48 Chief Complaint Chief Complaint Acute anemia - s/p 1u PRBC Acute encephalopathy - metabolic Upper extremity swelling - negative venous dopplers Dementia - previously with Mild cognitive impairment HTN, HLD, DM2, endometrial and breast cancer s/p bilateral mastectomy and TAHBSO, PVD History of Present Illness History of Present Illness 07/19/2021 Patient seen and examined Discussed with case management Discussed with RN The family does not want her to go back to [facility] We are trying to get a new shelter unit hopefully tomorrow Ms Landis is a 76-year-old female with past medical history HTN, HLD, DM2, dementia, endometrial and breast cancer s/p bilateral mastectomy and TAHBSO, PVD who presents from [facility] rehab due to anemia. She was recently discharged from [facility] after recent femur fracture with ORIF on 07/04/2021. Labs on discharge showed hemoglobin of 8.4, hematocrit 25.2, and hemoglobin A1c 6.5. 07/14/21 at [facility] she reportedly had a hemoglobin of 6.3. Nursing staff at [facility] report ongoing confusion and a nontraumatic fall. Somewhat confused and generally edematous. Patient been admitted for further medical management. 07/15: Hb 9 status post 1 unit PRBC transfusion. Right arm swelling and redness. Ihggtw-jk-fce was complaining of bilateral upper extremity swelling and redness and a couple falls SNF prior to coming over. Patient very agitated overnight required intramuscular Geodon. Discussed with onrdob-wi-zwt at bedside. Discussed with nursing bedside left heel ulcer noted dressed and due to multiple IVs should be accessing her Port-A-Cath. Still has not had a bowel movement will need to repeat hemogram prior to discharge and hopefully mental status clears. 07/16: Potassium 2.9 and CR 1.1, Hb 9. Still confused per mdcdkr-kd-ewa. She thinks she worked with therapy. Pending repeat Covid PCR prior to hopeful discharge in the next 72 hours back to shelter 07/17: Sundowning with confusion not responsive to redirection required low-dose antipsychotic overnight. Still disoriented today and inappropriately answering questions has been hallucinating seeing animals. No pain complaints. 07/18: Still very confused confabulating. Interestingly she is aware the year is 2021 but also answers this for the month and the season and the day of the week. Answers many questions inappropriately. Still hallucinating. Will hold her Ditropan. Of note she is still not had a bowel movement will start bowel regimen today. If her neurologic status does not improve after holding Ditropan and bowel regimen may need to consider neurological consultation. Vitals/I&O Vitals/I&O: Vital Signs Date Time Temp Pulse Resp B/P (MAP) Pulse Ox O2 Delivery O2 Flow Rate FiO2 07/19/21 09:53 63 148/74 07/19/21 08:30 Room Air 07/19/21 07:00 97.7 16 98 97.7 Physical Exam General: Alert, Cooperative Lungs: Clear Labs Labs: Laboratory Tests Test 07/18/21 20:38 07/19/21 07:39 Glucose (Fingerstick) 130 mg/dL (70-99) 92 mg/dL (70-99) Assessment and Plan Assessmemt and Plan Acute anemia - s/p 1u PRBC Acute encephalopathy - metabolic Upper extremity swelling - negative venous dopplers Dementia - previously with Mild cognitive impairment HTN, HLD, DM2, endometrial and breast cancer s/p bilateral mastectomy and TAHBSO, PVD Plan Hope to discharge to shelter of family's choice tomorrow morning For now continue current care Trend labs Home meds DVT prophylaxis Full code Comment Review of Relevant I have reviewed the following items lopez (where applicable) has been applied. Medications: Current Medications Medications (Trade) Dose Ordered Sig/Patti Route PRN Reason Start Time Stop Time Status Last Admin Dose Admin Senna/Docusate Sodium (Senna Plus) 1 tab BID PO 07/18/21 12:30 07/19/21 09:53 Polyethylene Glycol (miraLAX PACKET) 17 gm DAILY PO 07/18/21 12:30 07/19/21 09:53 Psyllium Hydrophilic Mucilloid (Metamucil Fiber Packet) 1 pkt QHS PO 07/18/21 21:00 07/18/21 21:27 Justifications for Admission Other Justification GINA BRAGA III DO Jul 19, 2021 11:49
--- NOTE | 2021-07-19 12:37 | NUR ---
SS following up with discharge planning. SS reviewed pt chart and discussed with pt RN. Pt is currently on room air. Pt is resident from [facility], ; fax [phone]. PT/OT recommended care home unit. [facility] reported that they will accept pt back when medically ready for discharge. COVID19 negative. Pt's family requesting referral to [facility], ; fax [phone]. Referral faxed as requested. SS will continue to follow for discharge planning.
[2021-07-19 15:30] VITALS: BP 145/55
[2021-07-19 19:00] VITALS: BP 139/43
[2021-07-19] MEDS: PSYLLIUM HUSK (SUGAR FREE) 1 PKT PACKET PO SCH (19:49)
[2021-07-19] MEDS: ZOLPIDEM 5 MG TABLET. PO PRN ×2 (19:50→22:57)
[2021-07-19] MEDS: ZIPRASIDONE IM 20 MG VIAL. IM PRN (20:30)
[2021-07-19 22:53] VITALS: BP 140/57
[2021-07-19] MEDS: oxyCODONE/APAP 5/325 1 TAB TABLET PO PRN (22:57)
[2021-07-19 23:18] VITALS: BP 148/80
[2021-07-20] VITALS (7 sets, daily range): BP systolic 122–171; BP diastolic 46–90
[2021-07-20] MEDS: SENNOSIDES/DOCUSATE 8.6/50MG TABLET. PO SCH ×2 (10:00→19:18)
[2021-07-20] MEDS: ATORVASTATIN CALCIUM 20 MG TABLET PO SCH (10:00)
[2021-07-20] MEDS: POLYETHYLENE GLYCOL 3350 17 GM PACKET. PO SCH (10:00)
[2021-07-20] MEDS: CLOPIDOGREL BISULFATE 75 MG TABLET PO SCH (10:00)
[2021-07-20] MEDS: LISINOPRIL 20 MG TABLET PO SCH (10:00)
[2021-07-20] MEDS: GABAPENTIN 300 MG CAPSULE. PO SCH ×2 (10:01→19:18)
--- NOTE | 2021-07-20 10:22 | PDOC ---
[employer] PROGRESS NOTE Date of Service DOS: DATE: 07/20/21 TIME: 10:21 Chief Complaint Chief Complaint Acute anemia - s/p 1u PRBC Acute encephalopathy - metabolic Upper extremity swelling - negative venous dopplers Dementia - previously with Mild cognitive impairment HTN, HLD, DM2, endometrial and breast cancer s/p bilateral mastectomy and TAHBSO, PVD History of Present Illness History of Present Illness 07/20/2021 Patient seen and examined Discussed with RN Discussed with case management Chart reviewed We are hoping to discharge to senior living today (family might be okay with [facility] or perhaps [place]) 07/19/2021 Patient seen and examined Discussed with case management Discussed with RN The family does not want her to go back to [facility] We are trying to get a new senior living unit hopefully tomorrow Ms Landis is a 76-year-old female with past medical history HTN, HLD, DM2, dementia, endometrial and breast cancer s/p bilateral mastectomy and TAHBSO, PVD who presents from [facility] rehab due to anemia. She was recently discharged from [facility] after recent femur fracture with ORIF on 07/04/2021. Labs on discharge showed hemoglobin of 8.4, hematocrit 25.2, and hemoglobin A1c 6.5. 07/14/21 at [facility] she reportedly had a hemoglobin of 6.3. Nursing staff at [facility] report ongoing confusion and a nontraumatic fall. Somewhat confused and generally edematous. Patient been admitted for further medical management. 07/15: Hb 9 status post 1 unit PRBC transfusion. Right arm swelling and redness. Azvaku-uq-ksy was complaining of bilateral upper extremity swelling and redness and a couple falls SNF prior to coming over. Patient very agitated overnight required intramuscular Geodon. Discussed with xgabnd-er-iqr at bedside. Discussed with nursing bedside left heel ulcer noted dressed and due to multiple IVs should be accessing her Port-A-Cath. Still has not had a bowel movement will need to repeat hemogram prior to discharge and hopefully mental status clears. 07/16: Potassium 2.9 and CR 1.1, Hb 9. Still confused per gzdufk-jc-swh. She thinks she worked with therapy. Pending repeat Covid PCR prior to hopeful discharge in the next 72 hours back to senior living 07/17: Sundowning with confusion not responsive to redirection required low-dose antipsychotic overnight. Still disoriented today and inappropriately answering questions has been hallucinating seeing animals. No pain complaints. 07/18: Still very confused confabulating. Interestingly she is aware the year is 2021 but also answers this for the month and the season and the day of the week. Answers many questions inappropriately. Still hallucinating. Will hold her Ditropan. Of note she is still not had a bowel movement will start bowel regimen today. If her neurologic status does not improve after holding Ditropan and bowel regimen may need to consider neurological consultation. Vitals/I&O Vitals/I&O: Vital Signs Date Time Temp Pulse Resp B/P (MAP) Pulse Ox O2 Delivery O2 Flow Rate FiO2 07/20/21 10:01 66 140/46 07/20/21 08:30 Room Air 07/20/21 07:00 96.5 18 98 96.5 I & O 07/19/21 07/19/21 07/20/21 15:00 23:00 07:00 Intake Total 240 ml 360 ml 320 ml Output Total 200 ml Balance 240 ml 360 ml 120 ml Physical Exam General: Alert, Cooperative Lungs: Clear Labs Labs: Laboratory Tests Test 07/19/21 12:27 07/19/21 17:02 07/19/21 21:08 07/20/21 08:06 Glucose (Fingerstick) 126 mg/dL (70-99) 160 mg/dL (70-99) 173 mg/dL (70-99) 118 mg/dL (70-99) Assessment and Plan Assessmemt and Plan Acute anemia - s/p 1u PRBC Acute encephalopathy - metabolic Upper extremity swelling - negative venous dopplers Dementia - previously with Mild cognitive impairment HTN, HLD, DM2, endometrial and breast cancer s/p bilateral mastectomy and TAHBSO, PVD Plan Hope to discharge to senior living of family's later today For now continue current care Trend labs Home meds DVT prophylaxis Full code PT OT Discharge to skilled Comment Review of Relevant I have reviewed the following items lopez (where applicable) has been applied. Justifications for Admission Other Justification GINA BRAGA III DO Jul 20, 2021 10:22
[2021-07-20] MEDS ORDERED: LISI-130 PO (10:24)
[2021-07-20] MEDS ORDERED: HYDR-2761 PO (10:24)
--- NOTE | 2021-07-20 10:26 | SNU/HH DC ---
DISCHARGE ORDERS DISCHARGE INFORMATION: CONDITION ON DISCHARGE: Stable CODE STATUS: Code Status: Full JAIL: SNF STAY <30 DAYS: Yes HOSPICE: HOSPICE: No HOSPICE EVAL & TREAT: No LTAC: ADMIT TO LTAC: No POST DISCHARGE ORDERS: ACTIVITY ORDERS: Activity as tolerated WEIGHT BEARING STATUS: As tolerated DIET AFTER DISCHARGE: Cardiac WOUND/INCISION CARE: No wound care needed CHECKS AFTER DISCHARGE: CHECKS AFTER DISCHARGE: Check blood press - daily TREATMENT/EQUIPMENT ORDERS: Physical Therapy For: Evalulation/Treatment Occupational Therapy For: Evaluation/Treatment Speech Language Pathology For: Evaluation/Treatment DISCHARGE MEDICATIONS: Home Meds Active Scripts Hydrocodone Bit/Acetaminophen (HYDROCODONE-APAP 5-325 ) 1 Tab Tablet, 1 TAB PO PRN Q4HRS PRN for MILD PAIN 1-3 for 10 Days, #20 TAB Prov:GINA BRAGA III DO 07/20/21 Lisinopril (LISINOPRIL) 40 Mg Tablet, 40 MG PO DAILY for . for 30 Days, #30 TAB Prov:GINA BRAGA III DO 07/20/21 Reported Medications Metformin Hcl (METFORMIN HCL) 1,000 Mg Tablet, 1000 MG PO DAILYWBKFT for ANTI- DIABETIC, TAB 0 Refills 07/04/21 Oxybutynin Chloride (OXYBUTYNIN CHLORIDE) 5 Mg Tablet, 5 MG PO BID for unknown, TAB 07/04/21 Clopidogrel Bisulfate (CLOPIDOGREL) 75 Mg Tablet, 75 MG PO DAILY for TO PREVENT BLOOD CLOTS, #30 TAB 0 Refills 07/04/21 Atorvastatin Calcium (ATORVASTATIN CALCIUM) 20 Mg Tablet, 20 MG PO DAILY for FOR CHOLESTEROL, #30 TAB 0 Refills 07/04/21 Gabapentin (GABAPENTIN) 600 Mg Tablet, 300 MG PO BID for nerve pain, TAB 07/04/21 Amlodipine Besylate/Benazepril (AMLODIPINE-BENAZEPRIL 5-40 MG) 1 Each Capsule, 1 EACH PO DAILY for bp, #1 CAP 07/04/21 Discontinued Scripts Oxycodone/Apap 5-325 (PERCOCET 5-325 MG TABLET ) 1 Each Tablet, 1 TAB PO PRN Q4HRS PRN for MODERATE TO SEVERE PAIN for 10 Days, #20 TAB Prov:STEFFANIE DEGROOT MD 07/09/21 GINA BRAGA III DO Jul 20, 2021 10:26
--- NOTE | 2021-07-20 14:22 | NUR ---
SS following up with discharge planning. SS reviewed pt chart and discussed with pt RN. Pt is currently on room air. COVID19 negative. PT/OT recommended senior care unit. Pt is skilled resident from [facility], ; fax [phone]. Pt's family stating that pt cannot go back to [facility]. Currently awaiting acceptance decision from [place]. Pt's family agreeable to referrals to [facility], [facility], and [facility]. Referrals sent as requested. SS will continue to follow for discharge planning. Addendum: 07/20/21 at 1518 by MICHELLE RAMOS Pt declined at [place].
[2021-07-20] MEDS: PSYLLIUM HUSK (SUGAR FREE) 1 PKT PACKET PO SCH (19:18)
[2021-07-20] MEDS: ZIPRASIDONE IM 20 MG VIAL. IM PRN (19:19)
[2021-07-21 03:00] VITALS: BP 167/47
[2021-07-21 07:00] VITALS: BP 132/66
[2021-07-21] MEDS: SENNOSIDES/DOCUSATE 8.6/50MG TABLET. PO SCH ×2 (08:39→20:23)
[2021-07-21] MEDS: LISINOPRIL 20 MG TABLET PO SCH (08:40)
[2021-07-21] MEDS: POLYETHYLENE GLYCOL 3350 17 GM PACKET. PO SCH ×2 (08:40→09:00)
[2021-07-21] MEDS: CLOPIDOGREL BISULFATE 75 MG TABLET PO SCH (08:40)
[2021-07-21] MEDS: GABAPENTIN 300 MG CAPSULE. PO SCH ×2 (08:40→20:23)
[2021-07-21] MEDS: ZIPRASIDONE IM 20 MG VIAL. IM PRN ×2 (08:42→20:23)
[2021-07-21] MEDS: ATORVASTATIN CALCIUM 20 MG TABLET PO SCH (09:00)
[2021-07-21 11:00] VITALS: BP 123/43
--- NOTE | 2021-07-21 11:23 | NUR ---
SS following up with discharge planning. SS reviewed pt chart and discussed with pt RN. Pt is currently on room air. COVID19 negative PCR on 07/16/2021. PT/OT recommended correction unit. Pt declined at [facility] and family does not want pt to return to [facility]. Pt accepted at [facility], ; fax [phone]. Facility requested new COVID19 PCR for placement within 48 hours of discharge. COVID19 PCR test pending for placement. Beds available at facility. Pt's family agreeable to discharge plan. SS will continue to follow for discharge planning.
--- NOTE | 2021-07-21 12:03 | PDOC ---
[employer] PROGRESS NOTE Date of Service DOS: DATE: 07/21/21 TIME: 11:53 Chief Complaint Chief Complaint Acute anemia - s/p 1u PRBC Acute encephalopathy - metabolic Upper extremity swelling - negative venous dopplers Dementia - previously with Mild cognitive impairment HTN, HLD, DM2, endometrial and breast cancer s/p bilateral mastectomy and TAHBSO, PVD History of Present Illness History of Present Illness 07/21/2021 Patient seen exam Discussed with RN Chart reviewed Patient seems to be at baseline We will go ahead and redischarge to correction 07/20/2021 Patient seen and examined Discussed with RN Discussed with case management Chart reviewed We are hoping to discharge to correction today (family might be okay with [facility] or perhaps [place]) 07/19/2021 Patient seen and examined Discussed with case management Discussed with RN The family does not want her to go back to [facility] We are trying to get a new correction unit hopefully tomorrow Ms Landis is a 76-year-old female with past medical history HTN, HLD, DM2, dementia, endometrial and breast cancer s/p bilateral mastectomy and TAHBSO, PVD who presents from [facility] rehab due to anemia. She was recently discharged from [facility] after recent femur fracture with ORIF on 07/04/2021. Labs on discharge showed hemoglobin of 8.4, hematocrit 25.2, and hemoglobin A1c 6.5. 07/14/21 at [facility] she reportedly had a hemoglobin of 6.3. Nursing staff at [facility] report ongoing confusion and a nontraumatic fall. Somewhat confused and generally edematous. Patient been admitted for further medical management. 07/15: Hb 9 status post 1 unit PRBC transfusion. Right arm swelling and redness. Pqkbbv-gf-ool was complaining of bilateral upper extremity swelling and redness and a couple falls SNF prior to coming over. Patient very agitated overnight required intramuscular Geodon. Discussed with mjsqbp-js-hfm at bedside. Discussed with nursing bedside left heel ulcer noted dressed and due to multiple IVs should be accessing her Port-A-Cath. Still has not had a bowel movement will need to repeat hemogram prior to discharge and hopefully mental status clears. 07/16: Potassium 2.9 and CR 1.1, Hb 9. Still confused per pjqozi-sz-yqk. She thinks she worked with therapy. Pending repeat Covid PCR prior to hopeful discharge in the next 72 hours back to correction 07/17: Sundowning with confusion not responsive to redirection required low-dose antipsychotic overnight. Still disoriented today and inappropriately answering questions has been hallucinating seeing animals. No pain complaints. 07/18: Still very confused confabulating. Interestingly she is aware the year is 2021 but also answers this for the month and the season and the day of the week. Answers many questions inappropriately. Still hallucinating. Will hold her Ditropan. Of note she is still not had a bowel movement will start bowel regimen today. If her neurologic status does not improve after holding Ditropan and bowel regimen may need to consider neurological consultation. Vitals/I&O Vitals/I&O: Vital Signs Date Time Temp Pulse Resp B/P (MAP) Pulse Ox O2 Delivery O2 Flow Rate FiO2 07/21/21 11:00 97.5 84 18 123/43 (69) 96 Room Air 97.5 I & O 07/20/21 07/20/21 07/21/21 15:00 23:00 07:00 Intake Total 120 ml 200 ml 100 ml Balance 120 ml 200 ml 100 ml Physical Exam General: Alert, Cooperative Lungs: Clear Labs Labs: Laboratory Tests Test 07/20/21 16:36 07/20/21 20:34 07/21/21 07:48 07/21/21 11:37 Glucose (Fingerstick) 119 mg/dL (70-99) 122 mg/dL (70-99) 88 mg/dL (70-99) 151 mg/dL (70-99) Assessment and Plan Assessmemt and Plan Acute anemia - s/p 1u PRBC Acute encephalopathy - metabolic Upper extremity swelling - negative venous dopplers Dementia - previously with Mild cognitive impairment HTN, HLD, DM2, endometrial and breast cancer s/p bilateral mastectomy and TAHBSO, PVD Plan Re- discharge to correction of family's choice later today For now continue current care Trend labs Home meds DVT prophylaxis Full code PT OT Discharge to skilled Comment Review of Relevant I have reviewed the following items lopez (where applicable) has been applied. Justifications for Admission Other Justification GINA BRAGA III DO Jul 21, 2021 12:03
[2021-07-21 15:00] VITALS: BP 155/54
[2021-07-21 19:00] VITALS: BP 129/40
[2021-07-21] MEDS: PSYLLIUM HUSK (SUGAR FREE) 1 PKT PACKET PO SCH (20:23)
[2021-07-21 23:07] VITALS: BP 153/52
[2021-07-22 07:00] VITALS: BP 146/49
--- NOTE | 2021-07-22 08:45 | NUR ---
SS following up with discharge planning. SS reviewed pt chart and discussed with pt RN. Pt is currently on room air. COVID19 negative. PT/OT recommended jail unit. Pt accepted at [facility], ; fax [phone], and family agreeable. Discharge orders and COVID19 negative test result sent to [place]. Pt will discharge today and go to [facility] between 1030 and 1100 via wheelchair transport. Pt, pt's RN, and pt's family notified.
[2021-07-22 09:02] VITALS: BP 146/49
[2021-07-22] MEDS: GABAPENTIN 300 MG CAPSULE. PO SCH (09:02)
[2021-07-22] MEDS: POLYETHYLENE GLYCOL 3350 17 GM PACKET. PO SCH (09:02)
[2021-07-22] MEDS: SENNOSIDES/DOCUSATE 8.6/50MG TABLET. PO SCH (09:02)
[2021-07-22] MEDS: LISINOPRIL 20 MG TABLET PO SCH (09:02)
[2021-07-22] MEDS: ATORVASTATIN CALCIUM 20 MG TABLET PO SCH (09:02)
[2021-07-22] MEDS: CLOPIDOGREL BISULFATE 75 MG TABLET PO SCH (09:02)
[2021-07-22] MEDS ORDERED: HEPARIN PF 500 UNIT/5 ML DISP.SYRIN. IVP ONE (09:45)
--- NOTE | 2021-07-22 10:20 | PDOC ---
[employer] PROGRESS NOTE Date of Service DOS: DATE: 07/22/21 TIME: 10:19 Chief Complaint Chief Complaint Acute anemia - s/p 1u PRBC Acute encephalopathy - metabolic Upper extremity swelling - negative venous dopplers Dementia - previously with Mild cognitive impairment HTN, HLD, DM2, endometrial and breast cancer s/p bilateral mastectomy and TAHBSO, PVD History of Present Illness History of Present Illness 07/22/2021 Patient seen and examined Discussed with RN Discussed with case management Chart reviewed We are discharging her to [facility] senior care later today 07/21/2021 Patient seen exam Discussed with RN Chart reviewed Patient seems to be at baseline We will go ahead and redischarge to senior care 07/20/2021 Patient seen and examined Discussed with RN Discussed with case management Chart reviewed We are hoping to discharge to senior care today (family might be okay with [facility] or perhaps [place]) 07/19/2021 Patient seen and examined Discussed with case management Discussed with RN The family does not want her to go back to [facility] We are trying to get a new senior care unit hopefully tomorrow Ms Landis is a 76-year-old female with past medical history HTN, HLD, DM2, dementia, endometrial and breast cancer s/p bilateral mastectomy and TAHBSO, PVD who presents from [facility] rehab due to anemia. She was recently discharged from [facility] after recent femur fracture with ORIF on 07/04/2021. Labs on discharge showed hemoglobin of 8.4, hematocrit 25.2, and hemoglobin A1c 6.5. 07/14/21 at [facility] she reportedly had a hemoglobin of 6.3. Nursing staff at [facility] report ongoing confusion and a nontraumatic fall. Somewhat confused and generally edematous. Patient been admitted for further medical management. 07/15: Hb 9 status post 1 unit PRBC transfusion. Right arm swelling and redness. Slgriw-va-xsl was complaining of bilateral upper extremity swelling and redness and a couple falls SNF prior to coming over. Patient very agitated overnight required intramuscular Geodon. Discussed with oxxyhb-kn-vfa at bedside. Discussed with nursing bedside left heel ulcer noted dressed and due to multiple IVs should be accessing her Port-A-Cath. Still has not had a bowel movement will need to repeat hemogram prior to discharge and hopefully mental status clears. 07/16: Potassium 2.9 and CR 1.1, Hb 9. Still confused per qqwsgo-ys-apr. She thinks she worked with therapy. Pending repeat Covid PCR prior to hopeful discharge in the next 72 hours back to senior care 07/17: Sundowning with confusion not responsive to redirection required low-dose antipsychotic overnight. Still disoriented today and inappropriately answering questions has been hallucinating seeing animals. No pain complaints. 07/18: Still very confused confabulating. Interestingly she is aware the year is 2021 but also answers this for the month and the season and the day of the week. Answers many questions inappropriately. Still hallucinating. Will hold her Ditropan. Of note she is still not had a bowel movement will start bowel regimen today. If her neurologic status does not improve after holding Ditropan and bowel regimen may need to consider neurological consultation. Vitals/I&O Vitals/I&O: Vital Signs Date Time Temp Pulse Resp B/P (MAP) Pulse Ox O2 Delivery O2 Flow Rate FiO2 07/22/21 09:02 66 146/49 07/22/21 07:35 Room Air 07/22/21 07:00 98.5 16 96 98.5 I & O 07/21/21 07/21/21 07/22/21 15:00 23:00 07:00 Intake Total 120 ml 50 ml 0 ml Balance 120 ml 50 ml 0 ml Physical Exam General: Alert, Cooperative Lungs: Clear Labs Labs: Laboratory Tests Test 07/21/21 11:37 07/21/21 16:52 07/21/21 20:13 07/22/21 07:21 Glucose (Fingerstick) 151 mg/dL (70-99) 125 mg/dL (70-99) 171 mg/dL (70-99) 114 mg/dL (70-99) Assessment and Plan Assessmemt and Plan Acute anemia - s/p 1u PRBC Acute encephalopathy - metabolic Upper extremity swelling - negative venous dopplers Dementia - previously with Mild cognitive impairment HTN, HLD, DM2, endometrial and breast cancer s/p bilateral mastectomy and TAHBSO, PVD Plan Discharge to [facility] later today For now continue current care Trend labs Home meds DVT prophylaxis Full code PT OT Discharge to skilled Comment Review of Relevant I have reviewed the following items lopez (where applicable) has been applied. Medications: Current Medications Medications (Trade) Dose Ordered Sig/Patti Route PRN Reason Start Time Stop Time Status Last Admin Dose Admin Heparin Sodium (Porcine) (Hep Lock Adult) 500 unit 1X ONCE IVP 07/22/21 09:45 07/22/21 09:46 DC 07/22/21 09:46 Justifications for Admission Other Justification GINA BRAGA III DO Jul 22, 2021 10:20
[2021-07-22] MEDS ORDERED: HYDR-2761 PO (10:23)
--- NOTE | 2021-07-22 10:24 | SNU/HH DC ---
DISCHARGE ORDERS DISCHARGE INFORMATION: CONDITION ON DISCHARGE: Stable CODE STATUS: Code Status: Full HALF-WAY: SNF STAY <30 DAYS: Yes HOSPICE: HOSPICE: No HOSPICE EVAL & TREAT: No LTAC: ADMIT TO LTAC: No POST DISCHARGE ORDERS: ACTIVITY ORDERS: Activity as tolerated WEIGHT BEARING STATUS: As tolerated DIET AFTER DISCHARGE: Cardiac WOUND/INCISION CARE: No wound care needed CHECKS AFTER DISCHARGE: CHECKS AFTER DISCHARGE: Check blood press - daily, Check blood sugar, ac/hs, Check your Temp as needed FOLLOW-UP: ADDITIONAL FOLLOW-UP: Primary care provider in 1 month TREATMENT/EQUIPMENT ORDERS: ADAPTIVE EQUIPMENT NEEDED: None Physical Therapy For: Evalulation/Treatment Occupational Therapy For: Evaluation/Treatment Speech Language Pathology For: Evaluation/Treatment DISCHARGE MEDICATIONS: Home Meds Active Scripts Hydrocodone Bit/Acetaminophen (HYDROCODONE-APAP 5-325 ) 1 Tab Tablet, 1 TAB PO PRN Q6HRS PRN for PAIN for 10 Days, #20 TAB 0 Refills Prov:CASTLEADALL K III DO 07/22/21 Lisinopril (LISINOPRIL) 40 Mg Tablet, 40 MG PO DAILY for . for 30 Days, #30 TAB Prov:OMINIAL K III DO 07/20/21 Reported Medications Metformin Hcl (METFORMIN HCL) 1,000 Mg Tablet, 1000 MG PO DAILYWBKFT for ANTI- DIABETIC, TAB 0 Refills 07/04/21 Oxybutynin Chloride (OXYBUTYNIN CHLORIDE) 5 Mg Tablet, 5 MG PO BID for unknown, TAB 07/04/21 Clopidogrel Bisulfate (CLOPIDOGREL) 75 Mg Tablet, 75 MG PO DAILY for TO PREVENT BLOOD CLOTS, #30 TAB 0 Refills 07/04/21 Atorvastatin Calcium (ATORVASTATIN CALCIUM) 20 Mg Tablet, 20 MG PO DAILY for FOR CHOLESTEROL, #30 TAB 0 Refills 07/04/21 Gabapentin (GABAPENTIN) 600 Mg Tablet, 300 MG PO BID for nerve pain, TAB 07/04/21 Amlodipine Besylate/Benazepril (AMLODIPINE-BENAZEPRIL 5-40 MG) 1 Each Capsule, 1 EACH PO DAILY for bp, #1 CAP 07/04/21 Discontinued Scripts Oxycodone/Apap 5-325 (PERCOCET 5-325 MG TABLET ) 1 Each Tablet, 1 TAB PO PRN Q4HRS PRN for MODERATE TO SEVERE PAIN for 10 Days, #20 TAB Prov:STEFFANIE DEGROOT MD 07/09/21 GINA BRAGA III DO Jul 22, 2021 10:24
--- NOTE | 2021-07-22 10:52 | NUR ---
Pt left unit at approx 1050 by wheelchair via transportation. Pt's port deaccessed, heparin locked. VSS. Discharge paperwork and belongings sent with pt. Report called to NIKITA Canela of [facility].
== END 2021-07-22 10:59 | DRG 811 ==
LOC: 5 NORTH 12:45
PROVIDERS: ADMIT Family Medicine; ATTEND Family Medicine
PROC: 30233N1 Transfusion of Nonautologous Red Blood Cells into Peripheral Vein, Percutaneous Approach (ICD-10-PCS; principal; 2021-07-14)
DX: D64.9 Anemia, unspecified (principal); G93.41 Metabolic encephalopathy; F05 Delirium due to known physiological condition; E11.51 Type 2 diabetes mellitus with diabetic peripheral angiopathy without gangrene; E78.5 Hyperlipidemia, unspecified; F03.90 Unspecified dementia, unspecified severity, without behavioral disturbance, psychotic disturbance, mood disturbance, and anxiety; I10 Essential (primary) hypertension; Z82.49 Family history of ischemic heart disease and other diseases of the circulatory system; Z85.3 Personal history of malignant neoplasm of breast; Z90.13 Acquired absence of bilateral breasts and nipples
CPT/HCPCS: 36415; 36430; 70450; 71045; 80048; 80053; 81001; 82962; 85014; 85018; 85025; 85027; 86850; 86900; 86901; 86920; 87040; 93306; 93970; A4314; J1642; J1940; J3480; J3486; P9016; U0003; 97110-GP; 97530-GO; 97530-GP; 97535-GO; C8929; G0378